=== PATIENT | female | born 1965 | race Caucasian/White ===

== ENCOUNTER → 2020-01-24 | Outpatient (CLI) | payer BC ==
[2020-01-24 16:03] LABS: Basophils % (A) 1 %; Eosinophils # (A) 0.4 k/uL (0-0.7); Eosinophils % (A) 5 %; HGB 12.8 gm/dL (11.4-16.0); Lymphocytes # (A) 2.8 k/uL (1.0-4.8); Lymphocytes % (A) 41 %; MCH 30.5 pg (25.0-35.0); MCV 95.2 fL (80.0-100.0); Mean Platelet Volume 6.8; Monocytes # (A) 0.4 k/uL (0-1.0); Monocytes % (A) 6 %; Neutrophils % (A) 45 %; Platelet Count 272 k/uL (150-450); WBC 6.8 k/uL (3.8-10.6)
[2020-01-24 16:05] LABS: Appearance,Urine Clear (Clear); Bilirubin,Urine Negative (Negative); Blood,Urine Negative (Negative); Color,Urine Yellow; Glucose,Urine (UA) Negative (Negative); Ketones,Urine Negative (Negative); Leukocyte Esterase,Urine Negative (Negative); Nitrite,Urine Negative (Negative); PH, Urine 6.5 (5.0-8.0); Protein,Urine Negative (Negative); Specific Gravity,Urine 1.014 (1.001-1.035); Urobilinogen,Urine <2.0 mg/dL (<2.0)
[2020-01-25 02:46] LABS: African American GFR (CKD) 53.1 (60.0-200.0); Albumin 4.5 g/dL (3.80-4.90); Albumin/Globulin Ratio 1.96 (1.60-3.17); Anion Gap 9.7 mmol/L (4.00-12.00); BUN/Creat Ratio 10.77 Ratio (12.00-20.00); Calcium 9.8 mg/dL (8.7-10.3); Carbon Dioxide 27.3 mmol/L (21.6-31.8); Globulin 2.3 g/dL (1.6-3.3); Non-African American GFR(CKD) 45.8 (60.0-200.0); Phosphorus 3.6 mg/dL (2.4-5.1); Potassium 4.2 mmol/L (3.5-5.5); Total Bilirubin 0.3 mg/dL (0.2-1.2); Total Protein 6.8 g/dL (6.2-8.2)
== END | disposition home or self-care (01) ==
LOC: LABWHC1 15:30
PROVIDERS: ATTEND Psychiatry & Neurology Neurology
DX: Z00.00 Encounter for general adult medical examination without abnormal findings (principal); G40.909 Epilepsy, unspecified, not intractable, without status epilepticus; N18.9 Chronic kidney disease, unspecified; Z79.899 Other long term (current) drug therapy
CPT/HCPCS: 36415; 80053; 80175; 81003; 84100; 85025

== ENCOUNTER → 2020-01-25 | Outpatient (CLI) | payer BC ==
--- NOTE | 2020-01-25 12:40 | US ---
EXAMINATION TYPE: US kidneys/renal and bladder DATE OF EXAM: 01/25/2020 COMPARISON: NONE CLINICAL HISTORY: 55-year-old female N18.9 CKD. TECHNIQUE: Multiple sonographic images of the kidneys and bladder are obtained. FINDINGS: EXAM MEASUREMENTS: Right Kidney: 11.0 x 4.8 x 4.2 cm Left Kidney: 12.3 x 5.2 x 4.2 cm Post Void Residual Volume: 19.5 mL No hydronephrosis on either side. Bladder: wnl Bilateral Jets seen: Yes Normal Post Void Residual: Yes IMPRESSION: 1. No hydronephrosis. 2. Postvoid bladder volume of 20 mL falls within acceptable limits.
== END | disposition home or self-care (01) ==
LOC: RADUSWWP 10:42
PROVIDERS: ATTEND Psychiatry & Neurology Neurology
DX: N18.9 Chronic kidney disease, unspecified (principal)
CPT/HCPCS: 76770

== ENCOUNTER → 2020-08-15 | Outpatient (CLI) | payer BC ==
[2020-08-15 17:36] LABS: African American GFR (CKD) 48.6 (60.0-200.0); Albumin 4.7 g/dL (3.80-4.90); Albumin/Globulin Ratio 2.35 (1.60-3.17); Anion Gap 10.9 mmol/L (4.00-12.00); BUN/Creat Ratio 9.29 Ratio (12.00-20.00); Carbon Dioxide 27.1 mmol/L (21.6-31.8); Chol/HDL Ratio 4.15; LDL Cholesterol,Calculated 171.4 mg/dL (0.0-131.0); Magnesium 2.3 mg/dL (1.5-2.4); Non-African American GFR(CKD) 41.9 (60.0-200.0); Potassium 4.9 mmol/L (3.5-5.5); Total Bilirubin 0.8 mg/dL (0.2-1.2); Total Protein 6.7 g/dL (6.2-8.2); VLDL Calculation 33.6 mg/dL (5.00-40.00)
[2020-08-15 18:44] LABS: Hemoglobin A1C 5.9 % (4.0-6.0)
== END | disposition home or self-care (01) ==
LOC: LABWHC1 09:48
PROVIDERS: ATTEND Nurse Practitioner Adult Health
DX: Z00.00 Encounter for general adult medical examination without abnormal findings (principal); N18.30 Chronic kidney disease, stage 3 unspecified; F10.99 Alcohol use, unspecified with unspecified alcohol-induced disorder; R42 Dizziness and giddiness
CPT/HCPCS: 36415; 80053; 80061; 83036; 83735; 84443; 84481

== ENCOUNTER 2020-10-15 12:55 | Inpatient (IN) | payer BC ==
[2020-10-15] MEDS ORDERED: SODIUM CHLORIDE 0.9% 1,000 ML IV STA (13:14)
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
[2020-10-15 13:23] LABS: Glucose,Whole Blood 99 mg/dL (75-99)
[2020-10-15 13:33] LABS: Basophils # (A) 0.1 k/uL (0-0.2); Basophils % (A) 1 %; Eosinophils # (A) 0.3 k/uL (0-0.7); Eosinophils % (A) 4 %; HCT 41.4 % (34.0-46.0); HGB 13.8 gm/dL (11.4-16.0); Lymphocytes # (A) 2.2 k/uL (1.0-4.8); Lymphocytes % (A) 29 %; MCH 30.8 pg (25.0-35.0); MCHC 33.3 g/dL (31.0-37.0); MCV 92.3 fL (80.0-100.0); Mean Platelet Volume 6.6; Monocytes # (A) 0.5 k/uL (0-1.0); Monocytes % (A) 7 %; Neutrophils # (A) 4.5 k/uL (1.3-7.7); Neutrophils % (A) 58 %; Platelet Count 314 k/uL (150-450); RBC 4.49 m/uL (3.80-5.40); RDW 13.7 % (11.5-15.5); WBC 7.7 k/uL (3.8-10.6)
[2020-10-15 13:45] LABS: INR 0.9 (<1.2); Partial Thromboplastin Time 24.5 sec (22.0-30.0); Prothrombin Time 9.8 sec (9.0-12.0)
[2020-10-15 13:50] LABS: Albumin 4.9 g/dL (3.5-5.0); Calcium 9.8 mg/dL (8.4-10.2); Total Bilirubin 0.6 mg/dL (0.2-1.3); Total Protein 7.7 g/dL (6.3-8.2)
--- NOTE | 2020-10-15 13:55 | CT ---
EXAMINATION TYPE: CT brain wo con for TPA DATE OF EXAM: 10/15/2020 COMPARISON: None HISTORY: Slurred speech CT DLP: 1055.8 mGycm Automated exposure control for dose reduction was used. Helical imaging through the brain FINDINGS: There is cortical atrophy. Cerebral vascular calcifications are present. No hemorrhage or hydrocephal us. Calvarium is intact. Paranasal sinuses and mastoid air cells as visualized are normal. Periventri cular white matter shows patchy low attenuation. IMPRESSION: AGE-RELATED ATROPHY AND CHRONIC SMALL VESSEL ISCHEMIA. CONSIDER BRAIN MRI.
--- NOTE | 2020-10-15 13:56 | XR ---
EXAMINATION TYPE: XR chest 2V DATE OF EXAM: 10/15/2020 COMPARISON: NONE HISTORY: Altered mental status TECHNIQUE: Frontal and lateral views of the chest are obtained. FINDINGS: There is no focal air space opacity, pleural effusion, or pneumothorax seen. The cardiac silhouette size is within normal limits. There is elevation of right hemidiaphragm. There are overly ing leads. The osseous structures are intact. IMPRESSION: No acute cardiopulmonary process.
[2020-10-15 13:58] LABS: Potassium 4.6 mmol/L (3.5-5.1)
[2020-10-15] MEDS ORDERED: ASPIRIN 325 MG TAB PO STA (15:17)
--- NOTE | 2020-10-15 15:19 | CT ---
EXAMINATION TYPE: CT angio head neck DATE OF EXAM: 10/15/2020 HISTORY: Slurred speech COMPARISON: CT brain 10/15/2020 CT DLP: 575.6 mGycm. Automated Exposure Control for Dose Reduction was Utilized. TECHNIQUE: CTA scan of the neck is performed with IV Contrast, patient injected with 65 mL of Isovue 370, axial images are obtained, coronal and sagittal reformatted images are reviewed. Three-D recons tructed images are created on an independent workstation and reviewed. FINDINGS: Carotid/Vascular Structures: No hemodynamically significant stenosis, occlusion, or aneurysm of the b ilateral common carotid or internal carotid arteries. The bilateral vertebral arteries are patent wit h no hemodynamically significant stenosis, occlusion, or aneurysm. The vertebrobasilar system is left dominant. [place]: Congenitally absent versus diminutive posterior commuting arteries. No evidence of large vessel occlusion or aneurysm. IMPRESSION: No hemodynamically significant stenosis or large vessel occlusion.
[2020-10-15] MEDS ORDERED: ACETAMINOPHEN TAB 500 MG TAB PO STA (16:57)
[2020-10-15] MEDS: SODIUM CHLORIDE 0.9% 1,000 ML IV SCH (17:21)
[2020-10-15] MEDS ORDERED: ALBUTEROL NEBULIZED 2.5 MG/3 ML INHALATION PRN (21:33)
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
[2020-10-15] MEDS: lamoTRIgine 100 MG TAB PO SCH (23:36)
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
[2020-10-16 04:59] LABS: Basophils # (A) 0.1 k/uL (0-0.2); Basophils % (A) 1 %; Eosinophils # (A) 0.3 k/uL (0-0.7); Eosinophils % (A) 5 %; HCT 39.5 % (34.0-46.0); HGB 13.5 gm/dL (11.4-16.0); Lymphocytes # (A) 2.6 k/uL (1.0-4.8); Lymphocytes % (A) 44 %; MCH 31.5 pg (25.0-35.0); MCHC 34.2 g/dL (31.0-37.0); MCV 92.3 fL (80.0-100.0); Mean Platelet Volume 6.5; Monocytes # (A) 0.3 k/uL (0-1.0); Monocytes % (A) 6 %; Neutrophils # (A) 2.5 k/uL (1.3-7.7); Neutrophils % (A) 43 %; Platelet Count 253 k/uL (150-450); RBC 4.28 m/uL (3.80-5.40); RDW 13.8 % (11.5-15.5); WBC 5.9 k/uL (3.8-10.6)
[2020-10-16 05:14] LABS: Calcium 9.7 mg/dL (8.4-10.2); Potassium 4.2 mmol/L (3.5-5.1)
[2020-10-16] MEDS: SODIUM CHLORIDE 0.9% 1,000 ML IV SCH (08:19)
[2020-10-16] MEDS: ATORVASTATIN 40 MG TAB PO SCH (08:19)
[2020-10-16] MEDS: lamoTRIgine 100 MG TAB PO SCH ×2 (08:20→20:36)
[2020-10-16] MEDS: PARoxetine 10 MG TAB PO SCH (08:20)
[2020-10-16] MEDS: SYMBICORT 160-4.5 MCG INHALER INHALATION SCH ×2 (08:29→20:22)
[2020-10-16] MEDS ORDERED: PANTOPRAZOLE 40 MG TABLET PO SCH (08:30)
--- NOTE | 2020-10-16 08:49 | US ---
EXAMINATION TYPE: US carotid duplex BILAT DATE OF EXAM: 10/16/2020 COMPARISON: CLINICAL HISTORY: stroke . Patient states she was unable to talk, possible tia. HTN. EXAM MEASUREMENTS: RIGHT: Peak Systolic Velocity (PSV) cm/sec ----- Right CCA: 56.9 ----- Right ICA: 109.7 ----- Right ECA: 85.4 ICA/CCA ratio: 1.9 RIGHT: End Diastole cm/sec ----- Right CCA: 11.3 ----- Right ICA: 25.7 ----- Right ECA: 17.6 LEFT: Peak Systolic Velocity (PSV) cm/sec ----- Left CCA: 87.8 ----- Left ICA: 104.7 ----- Left ECA: 101.6 ICA/CCA ratio: 1.2 LEFT: End Diastole cm/sec ----- Left CCA: 27.4 ----- Left ICA: 27.0 ----- Left ECA: 20.8 VERTEBRALS (direction of flow): Right Vertebral: Antegrade Left Vertebral: Antegrade Rhythm: Normal No wall thickening, significant stenosis, elevated velocities or plaque visualized. Grayscale, color Doppler, spectral Doppler imaging performed of the carotid arteries. Waveform analysis shows no steno sis. IMPRESSION: No evident hemodynamic stenosis of the proximal internal carotid arteries by Doppler cri teria, an indirect measurement of carotid stenosis Criteria for Assigning % of Stenosis / Diameter reduction (Estimation based on the indirect measurements of the internal carotid artery velocities (ICA PSV). 1. Normal (no stenosis)=ICA PSV < 125 cm/s: ratio < 2.0: ICA EDV<40 cm/s. 2. Less than 50% stenosis=ICA PSV < 125 cm/s: ratio < 2.0: ICA EDV<40 cm/s. 3. 50 to 69% stenosis=ICA PSV of 125 to 230 cm/s: ration 2.0 ? 4.0: ICA EDV 40-100 cm/s. 4. Greater than 70% stenosis to near occlusion= ICA PSV > 230 cm/s: ratio > 4.0: ICA EDV > 100 cm/s. 5. Near occlusion= ICA PSV velocities may be low or undetectable: variable ratio and ICA EDV. 6. Total occlusion=unable to detect flow.
[2020-10-16] MEDS: PANTOPRAZOLE 40 MG TABLET PO SCH (08:58)
[2020-10-16] MEDS ORDERED: LORazepam 2 MG/ML INJ IV PRN (09:17)
--- NOTE | 2020-10-16 09:21 | P.PN ---
Subjective This is a pleasant 55 years old female with past medical history of hypertension, asthma. Presents because of inability to talk for 20 minutes and slurred speech N emergency room patient found to have NIH of 1, she was found but a candidate for TPA per Dr. Erazo. Patient states after 10:00 patient could not speak and gradually she was getting better, first just at [employer] work, then to worsening her speech becomes slurs before came back to normal within half an hour. Currently she is speaking normally. She denies headache. No weakness or numbness or double vision. She is with history of seizure on Lamictal and she follows up with Dr. Merrill, patient states usually when she does seizure she got stuttering in her voice. 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 Johnson who check and her echo and monitoring her blood pressure. She is hemodynamically stable, blood pressure on the high side 163/81 unremarkable cbc, inr, bmp and liver enzymes except for slightly elevated creatinine of 1.1, baseline is 1.3-1.[address] of the brain: No acute process, age-related atrophy CTA of the brain is : No hemodynamically significant stenosis or large vessel occlusion Chest x-ray: No acute process In the emergency room patient received 1000 mL of normal saline 10/16/2020 Patient is awake and alert today. No more slurred speech. No other neurological complaints. No weakness or numbness or blurred vision. No headache. Labs are stable and unremarkable. TSH is normal at 2.1, creatinine is stable at 1.2 with GFR of 50 Vitals are stable. Neurologist recommended MRI of the brain, Lamictal level and hypercoagulable workup Currently she is continued on aspirin 325 mg Patient is eating and drinking so discontinue IV fluids Objective - Vital Signs Vital signs: Vital Signs Temp 98.1 F 10/16/20 08:00 Pulse 60 10/16/20 08:00 Resp 18 10/16/20 08:00 BP 119/71 10/16/20 08:00 Pulse Ox 94 L 10/16/20 08:00 Intake & Output 10/15/20 10/16/20 10/16/20 18:59 06:59 18:59 Weight 111.584 kg - Exam GENERAL: The patient is alert and oriented x3, not in any acute distress. Well developed, well nourished. HEENT: Pupils are round and equally reacting to light. EOMI. No scleral icterus. No conjunctival pallor. Normocephalic, atraumatic. No pharyngeal erythema. No thyromegaly. CARDIOVASCULAR: S1 and S2 present. No murmurs, rubs, or gallops. PULMONARY: Chest is clear to auscultation, no wheezing or crackles. ABDOMEN: Soft, nontender, nondistended, normoactive bowel sounds. No palpable organomegaly. MUSCULOSKELETAL: No joint swelling or deformity. EXTREMITIES: No cyanosis, clubbing, or pedal edema. NEUROLOGICAL: Gross neurological examination did not reveal any focal deficits. SKIN: No rashes. no petechiae. - Labs CBC & Chem 7: 10/16/20 04:15 10/16/20 04:19 Labs: Abnormal Lab Results - Last 24 Hours (Table) 10/15/20 10/16/20 Range/Units 13:18 04:19 Creatinine 1.17 H 1.21 H (0.52-1.04) mg/dL Glucose 104 H (74-99) mg/dL AST 39 H (14-36) U/L Assessment and Plan Assessment: Slurred speech and expressive aphasia, acute stroke versus TIA. Rule out seizure Permissive hypertension Chronic kidney disease stage 2-3 Plan: this is a pleasant 55 years old female has because of acute stroke. Versus TIA, versus seizure. Continue with aspirin, neuro check. Neurologic consult Genitorectal level and MRI of the brain Labs and medication were reviewed.. Continue same treatment. Continue with symptomatic treatment. Resume home medication. Monitor lytes and vitals. DVT and GI prophylaxis. Further recommendations depends on the clinical course of the patient DVT prophylaxis: Subcutaneous heparin GI Prophylaxis: Pepcid PT/OT: Pending Prognosis is guarded
[2020-10-16 10:53] LABS: Chol/HDL Ratio 3.27; LDL Cholesterol,Calculated 126.8 mg/dL (0.0-131.0); VLDL Calculation 18.2 mg/dL (5.00-40.00)
[2020-10-16 11:02] LABS: Folate, Serum 2.9 ng/mL
[2020-10-16 12:38] LABS: Beta 2 Microglobulin 2.85 mg/L (0.61-2.37)
[2020-10-16 15:33] LABS: Cardiolipin Ab IgG Interp NEGATIVE (NEGATIVE); Cardiolipin Ab IgM Interp NEGATIVE (NEGATIVE); Cardiolipin IgA Antibody <2.0 U/mL; Cardiolipin IgM Antibody 3.5 U/mL
[2020-10-16] MEDS ORDERED: CYANOCOBALAMIN 1,000 MCG/ML 1 ML VIAL IM ONE (17:00)
[2020-10-16] MEDS: FOLIC ACID 1 MG TAB PO SCH (18:18)
[2020-10-16] MEDS: MONTELUKAST 10 MG TAB PO SCH (20:36)
[2020-10-17] MEDS ORDERED: LORazepam 2 MG/ML INJ IV PRN (00:13)
[2020-10-17] MEDS: PANTOPRAZOLE 40 MG TABLET PO SCH (06:16)
[2020-10-17] MEDS ORDERED: ASPIRIN 325 MG TAB PO SCH (09:00)
[2020-10-17 09:01] LABS: Lamotrigine (Lamictal) 15.6 ug/mL (2.0-15.0)
[2020-10-17] MEDS: SYMBICORT 160-4.5 MCG INHALER INHALATION SCH ×2 (09:16→19:33)
[2020-10-17 09:18] LABS: Glucose,Whole Blood 110 mg/dL (75-99)
--- NOTE | 2020-10-17 09:19 | P.PN ---
Subjective Progress Note Date: 10/16/20 Patient was seen in the ER. Patient laying comfortably in the bed. Her was also present. Offers no complaints. No further neurological symptoms. Objective - Vital Signs Vital signs: Vital Signs Temp 98.1 F 10/16/20 20:23 Pulse 58 L 10/16/20 20:46 Resp 18 10/16/20 20:46 BP 128/76 10/16/20 20:23 Pulse Ox 96 10/16/20 20:23 Intake & Output 10/16/20 10/16/20 10/17/20 06:59 18:59 06:59 Weight 111.584 kg Other: Voiding Method Toilet # Voids 1 - Exam Patient is a middle aged female in no distress. Patient is alert awake oriented to time place and person. Speech and language functions are normal. Attention, concentration and fund of knowledge is adequate. On cranial examination, pupils are round and reacting to light, visual thompson are full on confrontation, extraocular muscles are intact with no nystagmus. Face is symmetric, tongue protrudes to the midline. Palatal elevation and sensation normal, hearing and shoulder shrug normal, facial sensation normal. Shoulder shrug normal. On muscle strength testing, there is no pronator drift and the strength is normal in arms and legs distally and proximally. Deep tendon reflexes are symmetric. Sensory to touch is equal with no neglect. Cerebellar function showed no ataxia for sxpwrg-dg-[id number] testing. No dysdiadochokinesia. Tone and bulk of muscles normal. Gait normal. On general examination, there is no carotid bruit or murmur, S1-S2 audible. Abdomen is soft nontender. Chest is clear. Peripheral pulses are present. No edema. - Labs CBC & Chem 7: 10/16/20 04:15 10/16/20 04:19 Labs: Abnormal Lab Results - Last 24 Hours (Table) 10/16/20 10/16/20 Range/Units 04:15 04:19 Creatinine 1.21 H (0.52-1.04) mg/dL Aoed-9-[id number] 2.85 H (0.61-2.37) mg/L Cholesterol 209 H (0-200) mg/dL HDL Cholesterol 64.0 H (40.0-60.0) mg/dL Homocysteine 22.36 H (4.00-14.00) umol/L Assessment and Plan Assessment: * Transient cerebral ischemia manifesting with expressive aphasia, and slurring, which resolved in about half an hour. * Hypertension * Hyperlipidemia * Obesity * Family history of strokes TIA. * Reported history of possible seizure disorder. Plan: * Await MRI of the brain to evaluate for an acute stroke. * Await 2-D echo with bubble study to rule out PFO. * CTA of head and neck showed no stenosis or occlusion or aneurysm. * Lipid panel revealed cholesterol 209, LDL 126, HDL 64 and triglycerides 91. Patient started on Lipitor 40 mg daily. * Hemoglobin A1c 5.9 on 08/15/2020. No need to repeat A1c. * Continue telemetry monitoring. * Patient has been started on aspirin 325 mg daily, which should be continued. * Patient has positive family history of CVA in her family members. Hyperc oagulable workup so far revealed negative cardiolipin antibodies, homocysteine is elevated 22.36, B12 315 which is borderline, folic acid 2.9, will need replacement. Beta 2 microglobulin is mildly elevated at 2.85/2.37. Await further hypercoagulable workup. * Lamictal level.
--- NOTE | 2020-10-17 09:39 | CT ---
EXAMINATION TYPE: CODE STROKE: CT brain wo contr DATE OF EXAM: 10/17/2020 COMPARISON: CT 10/15/2020 HISTORY: code stroke, slurred speech CT DLP: 1072.4 mGycm Automated exposure control for dose reduction was used. Helical imaging through the brain. FINDINGS: There is no acute intracranial hemorrhage, mass effect, or midline shift identified. There is periven tricular white matter patchy low attenuation similar to prior exam. The ventricles and sulci are with in normal limits in size. The globes are intact and the visualized sinuses are clear. IMPRESSION: No acute intracranial hemorrhage, mass effect, or midline shift is seen. Consider MRI.
[2020-10-17] MEDS: ATORVASTATIN 40 MG TAB PO SCH (10:21)
[2020-10-17] MEDS: PARoxetine 10 MG TAB PO SCH (10:21)
[2020-10-17] MEDS: lamoTRIgine 100 MG TAB PO SCH ×2 (10:21→20:19)
[2020-10-17] MEDS: FOLIC ACID 1 MG TAB PO SCH (10:21)
--- NOTE | 2020-10-17 10:54 | MR ---
EXAMINATION TYPE: MR brain wo con DATE OF EXAM: 10/17/2020 COMPARISON: NONE HISTORY: TIA vs CVA, left facial weakness TECHNIQUE: T1-weighted sagittal, T2, FLAIR, and diffusion axial, and T2 coronal coronal views of the brain are submitted. FINDINGS: There is no evidence of acute ischemia. The ventricles, basal cisterns, and sulci overlying the conv exities are consistent with the patient's age. There is no mass effect. Craniocervical junction maintained. Sella turcica has a normal appearance. Changes of chronic sinusitis noted. Orbits are symmetric. There are a few scattered areas of abnormal signal within the white matter which are nonspecific. No cerebellopontine angle mass. IMPRESSION: 1. Mild degenerative change and scattered nonspecific white matter changes most typical of remote isc hemia. 2. No evidence of acute ischemia.
[2020-10-17 10:58] LABS: Basophils % (A) 1 %; Eosinophils % (A) 4 %; HCT 40.3 % (34.0-46.0); HGB 13.4 gm/dL (11.4-16.0); Lymphocytes # (A) 1.7 k/uL (1.0-4.8); Lymphocytes % (A) 28 %; MCH 30.7 pg (25.0-35.0); MCHC 33.2 g/dL (31.0-37.0); MCV 92.6 fL (80.0-100.0); Mean Platelet Volume 6.8; Monocytes % (A) 6 %; Neutrophils # (A) 3.7 k/uL (1.3-7.7); Neutrophils % (A) 60 %; Platelet Count 291 k/uL (150-450); RBC 4.35 m/uL (3.80-5.40); RDW 13.6 % (11.5-15.5); WBC 6.1 k/uL (3.8-10.6)
[2020-10-17 10:59] LABS: Eosinophils # (A) 0.3 k/uL (0-0.7); Monocytes # (A) 0.4 k/uL (0-1.0)
[2020-10-17 11:08] LABS: INR 0.9 (<1.2); Partial Thromboplastin Time 23.1 sec (22.0-30.0); Prothrombin Time 10.2 sec (9.0-12.0)
[2020-10-17 11:10] LABS: Albumin 4.5 g/dL (3.5-5.0); Calcium 10.1 mg/dL (8.4-10.2); Potassium 4.4 mmol/L (3.5-5.1); Total Bilirubin 0.6 mg/dL (0.2-1.3); Total Protein 7.1 g/dL (6.3-8.2)
[2020-10-17] MEDS: CLOPIDOGREL 75 MG TAB PO SCH (12:41)
[2020-10-17 13:14] LABS: APTT 40 Sec(s) (<43); Dilute Russell Viper Venom 36 Sec(s) (<44)
--- NOTE | 2020-10-17 14:05 | P.PN ---
Progress Note - Text Progress Note Date: 10/17/20 Presenting complaint: Difficulty with speech Hospital course This is a pleasant 55 years old female with past medical history of hypertension, asthma. Presents because of inability to talk for 20 minutes and slurred speech N emergency room patient found to have NIH of 1, she was found but a candidate for TPA per Dr. Erazo. Patient states after 10:00 patient could not speak and gradually she was getting better, first just at [employer] work, then to worsening her speech becomes slurs before came back to normal within half an hour. Currently she is speaking normally. She denies headache. No weakness or numbness or double vision. She is with history of seizure on Lamictal and she follows up with Dr. Merrill, patient states usually when she does seizure she got stuttering in her voice Initial computed tomography scan of the brain, CT angiography, EKG were all unremarkable. Carotid Doppler did not show any significant stenosis. Today: Earlier today patient had an episode of losing her speech unable to find words while talking to her . On the phone. Code stroke was called. Repeat computed tomography scan was negative. She will had some weakness in the left leg and felt some tingling on the left side of the face. Symptoms are much better though she still having some trouble finding words not too much lesser degree. Review of systems: Was done for constitutional, cardiovascular, GI, pulmonary. relevant finding as above Active Medications Albuterol Sulfate (Albuterol Nebulized 2.5 Mg/3 Ml) 2.5 mg INHALATION RT-QID PRN PRN Reason: Shortness Of Breath Aspirin (Aspirin 81 Mg) 81 mg PO DAILY [facility] Atorvastatin Calcium (Atorvastatin 40 Mg Tab) 40 mg PO DAILY [facility] Last Admin: 10/17/20 10:21 Dose: 40 mg Documented by: Budesonide/Formoterol Fumarate (Symbicort 160-4.5 Mcg Inhaler) 2 puff INHALATION RT-BID [facility] Last Admin: 10/17/20 09:16 Dose: Not Given Documented by: Clopidogrel Bisulfate (Clopidogrel 75 Mg Tab) 75 mg PO DAILY [facility] Last Admin: 10/17/20 12:41 Dose: 75 mg Documented by: Folic Acid (Folic Acid 1 Mg Tab) 1 mg PO DAILY [facility] Last Admin: 10/17/20 10:21 Dose: 1 mg Documented by: Lamotrigine (Lamotrigine 100 Mg Tab) 300 mg PO BID [facility] Last Admin: 10/17/20 10:21 Dose: 300 mg Documented by: Lorazepam (Lorazepam 2 Mg/Ml Inj) 1 mg IV ONCE PRN PRN Reason: Anxiety Stop: 10/17/20 23:00 Montelukast Sodium (Montelukast 10 Mg Tab) 10 mg PO HS [facility] Last Admin: 10/16/20 20:36 Dose: 10 mg Documented by: Pantoprazole Sodium (Pantoprazole 40 Mg Tablet) 40 mg PO AC-BRKFST [facility] Last Admin: 10/17/20 06:16 Dose: 40 mg Documented by: Paroxetine HCl (Paroxetine 10 Mg Tab) 10 mg PO DAILY [facility] Last Admin: 10/17/20 10:21 Dose: 10 mg Documented by: On examination: VITAL SIGNS: [98.1, 67, 18, 168.89, 97% on room air] GENERAL APPEARANCE: BMI 40, sitting on bed, comfortable HEENT: Normal external appearance of nose and ear. Oral cavity normal EYES: Pupils equal. Conjunctiva normal. NECK: JVD not raised. Mass not palpable. RESPIRATORY: Respiratory effort normal. Lungs clear to auscultation. CARDIOVASCULAR: First and second sounds normal. No edema. ABDOMEN: Soft. Liver and spleen not palpable. No tenderness. No mass palpable. NEUROLOGICAL: Cranial nerves grossly intact. Power sensation grossly intact. Patient is finding some subtle difficulty in finding words at times. PSYCHIATRY: Alert and oriented x3. Mood and affect normal. INVESTIGATIONS, reviewed in the clinical context: Brain MRI [October 17]:Nothing acute, chronic changes CT brain: [October 17: Nothing acute WBC 6.1 hemoglobin 13.4 potassium 4.4 creatinine 1.26 for LDL 126 TSH 2.1 Coronavirus [PCR]-not detected Anticardiolipin antibodies: Negative Computed tomography scan of the brain, CT angiography, carotid Doppler: Unremarkable EKG tracing: Normal sinus rhythm Assessment and plan: -Recurrent TIA-repeat episode this morning. Patient's had 2 negative computed tomography scan, negative carotid Doppler, negative MRI. This could be small vessel disease. On aspirin, Plavix, increase Lipitor to 80 mg daily at bedtime. -Morbid obesity BMI 40 Weight loss measures, follow with PCP -Essential hypertension Cozaar -Hyperlipidemia On Lipitor -Anxiety depression not otherwise specified On Paxil Patient will be getting EEG this morning. Follow-up with neurology. Care was discussed with the patient has been off the bedside. Increase Lipitor.
--- NOTE | 2020-10-17 17:01 | P.PN ---
Subjective Progress Note Date: 10/17/20 Patient was seen urgently today, as patient had a stroke activated today and 9:16 AM. Patient was apparently talking to her on the phone, when suddenly she could not articulate, could not speak. She was having some right- sided visual field issues. NIH stroke scale was 3, mainly related to partial right visual field deficit, some aphasia and dysarthria. Patient's blood pressure was 168/89, with pulse rate of 67. Patient underwent stat computed tomography scan of the head, which came back normal. Patient was sent for MRI of the brain, directly from the CT department,. Her MRI of the brain revealed no evidence of acute ischemia. Mild degenerative changes and scattered nonspecific white matter changes, most typical of remote ischemia. Patient's neurological symptoms resolved by 10 AM. Patient now complaining of some burning sensation in the frontal region. Patient denies any history of headaches or migraines. Objective - Vital Signs Vital signs: Vital Signs Temp 98.5 F 10/17/20 08:06 Pulse 60 10/17/20 08:06 Resp 20 10/17/20 08:06 BP 131/77 10/17/20 08:06 Pulse Ox 93 L 10/17/20 08:06 Intake & Output 10/16/20 10/17/20 10/17/20 18:59 06:59 18:59 Intake Total 10 240 Balance 10 240 Weight 109.1 kg Intake: IV 10 0.9 10 Oral 240 Other: Voiding Method Toilet # Voids 1 1 - Exam Patient is a middle aged female in no distress. Patient is alert awake oriented to time place and person. Speech and language functions are normal. Attention, concentration and fund of knowledge is adequate. On cranial examination, pupils are round and reacting to light, visual thompson are full on confrontation, extraocular muscles are intact with no nystagmus. Face is symmetric, tongue protrudes to the midline. Palatal elevation and sensation normal, hearing and shoulder shrug normal, facial sensation normal. Shoulder shrug normal. On muscle strength testing, there is no pronator drift and the strength is normal in arms and legs distally and proximally. Deep tendon reflexes are symmetric. Sensory to touch is equal with no neglect. Cerebellar function showed no ataxia for ylljba-uw-nlhr testing. No dysdiadochokinesia. Tone and bulk of muscles normal. Gait normal. On general examination, there is no carotid bruit or murmur, S1-S2 audible. Abdomen is soft nontender. Chest is clear. Peripheral pulses are present. No edema. - Labs CBC & Chem 7: 10/17/20 10:12 10/17/20 10:12 Labs: Abnormal Lab Results - Last 24 Hours (Table) 10/16/20 10/16/20 10/16/20 Range/Units 04:15 04:15 04:19 POC Glucose (mg/dL) (75-99) mg/dL Ecve-7-Pmhcxadzpqnsv 2.85 H (0.61-2.37) mg/L Cholesterol 209 H (0-200) mg/dL HDL Cholesterol 64.0 H (40.0-60.0) mg/dL Homocysteine 22.36 H (4.00-14.00) umol/L Lamotrigine 15.6 H (2.0-15.0) ug/mL 10/17/20 Range/Units 09:15 POC Glucose (mg/dL) 110 H (75-99) mg/dL Eqaw-8-Jjamfczseqaob (0.61-2.37) mg/L Cholesterol (0-200) mg/dL HDL Cholesterol (40.0-60.0) mg/dL Homocysteine (4.00-14.00) umol/L Lamotrigine (2.0-15.0) ug/mL Assessment and Plan Assessment: * Recurrent TIAs 2, manifesting with transient expressive aphasia, and slurring. Both of these events resolved in 45 minutes to an hour. * Hypertension * Hyperlipidemia * Obesity * Family history of strokes TIA. * History of seizure disorder, currently on Lamictal. Plan: * MRI of the brain revealed no acute stroke. Some small vessel ischemic change. * Await 2-D echo with bubble study to rule out PFO. Still outstanding. * CTA of head and neck showed no stenosis or occlusion or aneurysm. * Lipid panel revealed cholesterol 209, LDL 126, HDL 64 and triglycerides 91. Patient started on Lipitor 40 mg daily. * Hemoglobin A1c 5.9 on 08/15/2020. No need to repeat A1c. * Continue telemetry monitoring. * Patient will be placed on dual antiplatelet medications at this time. May n eed a EMELY for recurrent TIAs. * Patient has positive family history of CVA in her family members. Hy percoagulable workup so far revealed negative cardiolipin antibodies, homocysteine is elevated 22.36, B12 315 which is borderline, folic acid 2.9, will need replacement. * Beta 2 microglobulin is mildly elevated at 2.85/2.37. Await further hypercoa gulable workup. We will request hematology consultation to check for hypercoagulable state especially with elevated beta 2 microglobulin's. * Lamictal level is mildly elevated 15.6. Patient currently on Lamictal 300 mg twice a day. * EEG was performed, which revealed focal slowing and focal epileptiform activity over the left temporal region. This suggestive of focal cortical neuronal dysfunction with underlying cortical irritability and tendency for seizures. Patient does have history of seizure disorder, currently on Lamictal. It is uncertain if these events represent partial seizures, or TIAs.
--- NOTE | 2020-10-17 19:07 | EEG ---
ELECTROENCEPHALOGRAM REPORT DATE OF SERVICE: 10/17/2020 PREAMBLE: This is a 55-year-old female who is having recurrent TIAs with negative MRI. This study is performed to evaluate for any epileptiform activity. Patient does have history of seizure disorder as well. Currently on Lamictal 300 mg b.i.d. EEG FINDINGS: This is a 21 channel routine EEG recording in a patient utilizing 10/20 international system with referential and bipolar montages. The background consists of well developed, well regulated, moderate voltage activity in 9-10 hertz alpha. Background is posterior dominant and is reactive to eye opening and closing. There is frequent dysrhythmic delta and some theta activity seen in the left temporal region. Intermittent left mid temporal sharp waves were also seen. Photic driving response was not seen. Different stages of sleep were not seen. No electrographic seizure was recorded. EKG channel showed no arrhythmia. IMPRESSION: This is an abnormal EEG due to presence of focal slowing and focal epileptiform activity over the left temporal region. This is suggestive of focal cortical neuronal dysfunction with underlying cortical irritability and tendency for partial seizures. No electrographic seizure was recorded. MMODL / IJN: [id number] /
[2020-10-17] MEDS: ATORVASTATIN 80 MG TAB PO SCH (20:19)
[2020-10-17] MEDS: MONTELUKAST 10 MG TAB PO SCH (20:19)
[2020-10-18] MEDS: PANTOPRAZOLE 40 MG TABLET PO SCH (06:35)
[2020-10-18] MEDS: SYMBICORT 160-4.5 MCG INHALER INHALATION SCH ×2 (07:50→20:01)
[2020-10-18] MEDS: lamoTRIgine 100 MG TAB PO SCH ×2 (09:03→21:07)
[2020-10-18] MEDS: ASPIRIN 81 MG PO SCH (09:04)
[2020-10-18] MEDS: FOLIC ACID 1 MG TAB PO SCH (09:04)
[2020-10-18] MEDS: CLOPIDOGREL 75 MG TAB PO SCH (09:04)
[2020-10-18] MEDS: PARoxetine 10 MG TAB PO SCH (09:04)
[2020-10-18] MEDS ORDERED: CYANOCOBALAMIN 1,000 MCG/ML 1 ML VIAL IM ONE (13:40)
--- NOTE | 2020-10-18 15:42 | P.PN ---
Progress Note - Text Progress Note Date: 10/18/20 Presenting complaint: Difficulty with speech Hospital course This is a pleasant 55 years old female with past medical history of hypertension, asthma. Presents because of inability to talk for 20 minutes and slurred speech N emergency room patient found to have NIH of 1, she was found but a candidate for TPA per Dr. Erazo. Patient states after 10:00 patient could not speak and gradually she was getting better, first just at [employer] work, then to worsening her speech becomes slurs before came back to normal within half an hour. Currently she is speaking normally. She denies headache. No weakness or numbness or double vision. She is with history of seizure on Lamictal and she follows up with Dr. Merrill, patient states usually when she does seizure she got stuttering in her voice Initial computed tomography scan of the brain, CT angiography, EKG were all unremarkable. Carotid Doppler did not show any significant stenosis. October 17: patient had an episode of losing her speech unable to find words while talking to her . On the phone. Code stroke was called. Repeat computed tomography scan was negative. She will had some weakness in the left leg and felt some tingling on the left side of the face. Symptoms improved within about 40 minutes. Today: Patient having slight difficulty finding words but otherwise able to converse. No focal weakness. at the bedside. Review of systems: Was done for constitutional, cardiovascular, GI, pulmonary. relevant finding as above Active Medications Albuterol Sulfate (Albuterol Nebulized 2.5 Mg/3 Ml) 2.5 mg INHALATION RT-QID PRN PRN Reason: Shortness Of Breath Aspirin (Aspirin 81 Mg) 81 mg PO DAILY [facility] Last Admin: 10/18/20 09:04 Dose: 81 mg Documented by: Atorvastatin Calcium (Atorvastatin 80 Mg Tab) 80 mg PO HS [facility] Last Admin: 10/17/20 20:19 Dose: 80 mg Documented by: Budesonide/Formoterol Fumarate (Symbicort 160-4.5 Mcg Inhaler) 2 puff INHALATION RT-BID [facility] Last Admin: 10/18/20 07:50 Dose: 2 puff Documented by: Clopidogrel Bisulfate (Clopidogrel 75 Mg Tab) 75 mg PO DAILY [facility] Last Admin: 10/18/20 09:04 Dose: 75 mg Documented by: Folic Acid (Folic Acid 1 Mg Tab) 1 mg PO DAILY [facility] Last Admin: 10/18/20 09:04 Dose: 1 mg Documented by: Lamotrigine (Lamotrigine 100 Mg Tab) 300 mg PO BID [facility] Last Admin: 10/18/20 09:03 Dose: 300 mg Documented by: Montelukast Sodium (Montelukast 10 Mg Tab) 10 mg PO HS [facility] Last Admin: 10/17/20 20:19 Dose: 10 mg Documented by: Pantoprazole Sodium (Pantoprazole 40 Mg Tablet) 40 mg PO AC-BRKFST [facility] Last Admin: 10/18/20 06:35 Dose: 40 mg Documented by: Paroxetine HCl (Paroxetine 10 Mg Tab) 10 mg PO DAILY [facility] Last Admin: 10/18/20 09:04 Dose: 10 mg Documented by: On examination: VITAL SIGNS: 97.5, 72, 16, 128.78, 95% room air GENERAL APPEARANCE: Resting in bed HEENT: Normal external appearance of nose and ear. Oral cavity normal EYES: Pupils equal. Conjunctiva normal. NECK: JVD not raised. Mass not palpable. RESPIRATORY: Respiratory effort normal. Lungs clear to auscultation. CARDIOVASCULAR: First and second sounds normal. No edema. ABDOMEN: Soft. Liver and spleen not palpable. No tenderness. No mass palpable. NEUROLOGICAL: Cranial nerves grossly intact. Power sensation grossly intact. finding some subtle difficulty in finding words at times. PSYCHIATRY: Alert and oriented x3. Mood and affect normal. INVESTIGATIONS, reviewed in the clinical context: EEG: Focal slowing and focal epileptiform activity over the left temporal region. Brain MRI [October 17]:Nothing acute, chronic changes CT brain: [October 17: Nothing acute WBC 6.1 hemoglobin 13.4 potassium 4.4 creatinine 1.26 for LDL 126 TSH 2.1 Coronavirus [PCR]-not detected Anticardiolipin antibodies: Negative Computed tomography scan of the brain, CT angiography, carotid Doppler: Unremarkable EKG tracing: Normal sinus rhythm Assessment and plan: -Recurrent TIA- Patient's had 2 negative computed tomography scan, negative carotid Doppler, negative MRI. This could be small vessel disease. On aspirin, Plavix, Lipitor. -Morbid obesity BMI 40 Weight loss measures, follow with PCP -Essential hypertension Cozaar -Hyperlipidemia On Lipitor -Anxiety depression not otherwise specified On Paxil -Epileptiform activity, and the left temporal lobe Patient is on Lamictal. We'll await further input from neurology. -Moderate persistent asthma Continue with Symbicort, and platelet Continue current medications. We'll discuss with neurology. Care was discussed with the patient has been out of the bedside.
--- NOTE | 2020-10-18 16:25 | P.PN ---
Subjective Progress Note Date: 10/18/20 10/18/2020: Patient was seen for a follow-up. Patient is doing well. Offers no complaints. No further spells in the last 24 hours. All symptoms have resolved. Patient had EEG performed, which revealed focal slowing and epileptiform activity over the left temporal region. Uncertain if her spells are from TIA, or focal seizures. Patient states that she has been diagnosed with "mild seizures" by Dr. Merrill. She has not had any seizures for last 5 years. Patient states that her can only tell when she is having a seizure. Sometimes she would stop in the middle of the sentence and would not remember what she was talking. She describes her major seizure in which she gets burning sensation in the forehead and then gets like a star burst feeling. And then the sensation goes down her neck to the arm and she is forgetful. She would do stuff that she would not remember. Like an example, she once cleaned the globe of the light bulb, covered it with a towel and put in the cabinet unde r the sink, not realizing what she did. Patient was at first placed on phenobarbital, but developed side effects. Depakote produced hepatic dysfunction, Topamax produced hearing loss. She also was on zonisamide but produced breakthrough seizures. The last medication she was placed on was Lamictal, which is apparently working well for her. 10/17/2020: Patient was seen urgently today, as patient had a stroke activated today and 9:16 AM. Patient was apparently talking to her on the phone, when suddenly she could not articulate, could not speak. She was having some right-sided visual field issues. NIH stroke scale was 3, mainly related to partial right visual field deficit, some aphasia and dysarthria. Patient's blood pressure was 168/89, with pulse rate of 67. Patient underwent stat computed tomography scan of the head, which came back normal. Patient was sent for MRI of the brain, directly from the CT department,. Her MRI of the brain revealed no evidence of acute ischemia. Mild degenerative changes and scattered nonspecific white matter changes, most typical of remote ischemia. Patient's neurological symptoms resolved by 10 AM. Patient now complaining of some burning sensation in the frontal region. Patient denies any history of headaches or migraines. Objective - Vital Signs Vital signs: Vital Signs Temp 97.5 F L 06/03/21 12:54 Pulse 72 10/18/20 12:54 Resp 16 10/18/20 13:07 BP 128/78 10/18/20 12:54 Pulse Ox 95 10/18/20 12:54 Intake & Output 10/17/20 10/18/20 10/18/20 18:59 06:59 18:59 Intake Total 760 810 Balance 760 810 Weight 108.6 kg Intake: IV 20 10 Invasive Line 1 20 Invasive Line 2 10 Oral 740 800 Other: Voiding Method Toilet Toilet Toilet # Voids 2 - Exam Patient is a middle aged female in no distress. Patient is alert awake oriented to time place and person. Speech and language functions are normal. Attention, concentration and fund of knowledge is adequate. On cranial examination, pupils are round and reacting to light, visual thompson are full on confrontation, extraocular muscles are intact with no nystagmus. Face is symmetric, tongue protrudes to the midline. Palatal elevation and sensation normal, hearing and shoulder shrug normal, facial sensation normal. Shoulder shrug normal. On muscle strength testing, there is no pronator drift and the strength is normal in arms and legs distally and proximally. Deep tendon reflexes are symmetric. Sensory to touch is equal with no neglect. Cerebellar function showed no ataxia for [id number] testing. No dysdiadochokinesia. Tone and bulk of muscles normal. Gait normal. On general examination, there is no carotid bruit or murmur, S1-S2 audible. Abdomen is soft nontender. Chest is clear. Peripheral pulses are present. No edema. - Labs CBC & Chem 7: 10/17/20 10:12 10/17/20 10:12 Assessment and Plan Assessment: * Recurrent TIAs 2, manifesting with transient expressive aphasia, and slurring. Both of these events resolved in 45 minutes to an hour. MRI of the brain negative for acute stroke. * History of seizure disorder. Patient has been seizure-free for the last 5 years. Patient's current EEG was abnormal with evidence of focal slowing and sharp wave activity over the left temporal region. Uncertain if these spells were focal seizures. * Hypertension * Hyperlipidemia * Obesity * Family history of strokes TIA. Plan: * MRI of the brain revealed no acute stroke. Some small vessel ischemic change. * Await 2-D echo with bubble study to rule out PFO. Still outstanding. * CTA of head and neck showed no stenosis or occlusion or aneurysm. * Lipid panel revealed cholesterol 209, LDL 126, HDL 64 and triglycerides 91. Patient started on Lipitor 40 mg daily. * Hemoglobin A1c 5.9 on 08/15/2020. No need to repeat A1c. * Telemetry monitoring revealed sinus rhythm with sinus bradycardia. * Continue dual antiplatelet medications at this time. May need a EMELY for recurrent TIAs. * Patient has positive family history of CVA in her family members. Hyp ercoagulable workup so far revealed negative cardiolipin antibodies, homocysteine is elevated 22.36, B12 315 which is borderline, folic acid 2.9, will need replacement. * Beta 2 microglobulin is mildly elevated at 2.85/2.37. Lupus anticoagulant neg ative. Await further hypercoagulable workup. Await hematology consultation to check for hypercoagulable state especially with elevated beta 2 microglobulin's. * Lamictal level is mildly elevated 15.6. Patient currently on Lamictal 300 mg twice a day. * EEG revealed focal slowing and focal epileptiform activity over the left temporal region. This suggestive of focal cortical neuronal dysfunction with underlying cortical irritability and tendency for seizures. Patient does have history of seizure disorder, currently on Lamictal. It is uncertain if these events represent partial seizures, or TIAs. We will keep her on same dose of Lamictal for now.
[2020-10-18] MEDS ORDERED: HALOPERIDOL LACTATE 5 MG/ML 1 ML VIAL IM STA (16:59)
[2020-10-18] MEDS ORDERED: valACYclovir 500 MG TAB PO SCH (17:15)
[2020-10-18] MEDS: valACYclovir HCL 1,000 MG TABLET PO SCH ×2 (18:02→21:07)
[2020-10-18] MEDS: ATORVASTATIN 80 MG TAB PO SCH (21:07)
[2020-10-18] MEDS: MONTELUKAST 10 MG TAB PO SCH (21:07)
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
[2020-10-19] MEDS: PANTOPRAZOLE 40 MG TABLET PO SCH (06:42)
[2020-10-19] MEDS: SYMBICORT 160-4.5 MCG INHALER INHALATION SCH (07:53)
[2020-10-19] MEDS: ASPIRIN 81 MG PO SCH (08:47)
[2020-10-19] MEDS: FOLIC ACID 1 MG TAB PO SCH (08:48)
[2020-10-19] MEDS: lamoTRIgine 100 MG TAB PO SCH (08:49)
[2020-10-19] MEDS: valACYclovir HCL 1,000 MG TABLET PO SCH (08:50)
[2020-10-19] MEDS: PARoxetine 10 MG TAB PO SCH (08:50)
[2020-10-19] MEDS: CLOPIDOGREL 75 MG TAB PO SCH (08:51)
[2020-10-19 10:29] LABS: Anti-Thrombin III Activity 107 % (79-109)
[2020-10-19 11:23] LABS: Protein C (Activity) 113 % (71-138)
[2020-10-19 11:31] VITALS: BP 144/75; PULSE 63; RESP 16; TEMP 98.2
--- NOTE | 2020-10-19 14:29 | P.PN ---
Subjective Progress Note Date: 10/19/20 10/19/2020:Patient doing well, offers no complaints. No numbness tingling focal weakness or speech difficulty. Telemetry monitoring showing sinus rhythm with sinus bradycardia in the 50s. No A. fib. 10/18/2020: Patient was seen for a follow-up. Patient is doing well. Offers no complaints. No further spells in the last 24 hours. All symptoms have resolved. Patient had EEG performed, which revealed focal slowing and epileptiform activity over the left temporal region. Uncertain if her spells a re from TIA, or focal seizures. Patient states that she has been diagnosed with "mild seizures" by Dr. Merrill. She has not had any seizures for last 5 years. Patient states that her can only tell when she is having a seizure. Sometimes she would stop in the middle of the sentence and would not remember what she was talking. She describes her major seizure in which she gets burning sensation in the forehead and then gets like a star burst feeling. And then the sensation goes down her neck to the arm and she is forgetful. She would do stuff that she would not remember. Like an example, she once cleaned the globe of the light bulb, covered it with a towel and put in the cabinet under the sink, not realizing what she did. Patient was at first placed on phenobarbital, but developed side effects. Depakote produced hepatic dysfunction, Topamax produced hearing loss. She also was on zonisamide but produced breakthrough seizures. The last medication she was placed on was Lamictal, which is apparently working well for her. 10/17/2020: Patient was seen urgently today, as patient had a stroke activated today and 9:16 AM. Patient was apparently talking to her on the phone, when suddenly she could not articulate, could not speak. She was having some right-sided visual field issues. NIH stroke scale was 3, mainly related to partial right visual field deficit, some aphasia and dysarthria. Patient's blood pressure was 168/89, with pulse rate of 67. Patient underwent stat computed tomography scan of the head, which came back normal. Patient was sent for MRI of the brain, directly from the CT department,. Her MRI of the brain revealed no evidence of acute ischemia. Mild degenerative changes and scattered nonspecific white matter changes, most typical of remote ischemia. Patient's neurological symptoms resolved by 10 AM. Patient now complaining of some burning sensation in the frontal region. Patient denies any history of headaches or migraines. Objective - Vital Signs Vital signs: Vital Signs Temp 98.2 F 10/19/20 11:28 Pulse 63 10/19/20 11:28 Resp 16 10/19/20 11:28 BP 144/75 10/19/20 11:28 Pulse Ox 95 10/19/20 11:28 Intake & Output 10/18/20 10/19/20 10/19/20 18:59 06:59 18:59 Intake Total 1010 240 Balance 1010 240 Weight 108 kg Intake: IV 10 Invasive Line 2 10 Oral 1000 240 Other: Voiding Method Toilet Toilet # Voids 2 - Exam Patient is a middle aged female in no distress. Patient is alert awake oriented to time place and person. Speech and language functions are normal. Attention, concentration and fund of knowledge is adequate. On cranial examination, pupils are round and reacting to light, visual thompson are full on confrontation, extraocular muscles are intact with no nystagmus. Face is symmetric, tongue protrudes to the midline. Palatal elevation and sensation normal, hearing and shoulder shrug normal, facial sensation normal. Shoulder shrug normal. On muscle strength testing, there is no pronator drift and the strength is normal in arms and legs distally and proximally. Deep tendon reflexes are symmetric. Sensory to touch is equal with no neglect. Cerebellar function showed no ataxia for [id number] testing. No dysdiadochokinesia. Tone and bulk of muscles normal. Gait normal. On general examination, there is no carotid bruit or murmur, S1-S2 audible. Abdomen is soft nontender. Chest is clear. Peripheral pulses are present. No edema. - Labs CBC & Chem 7: 10/17/20 10:12 10/17/20 10:12 Labs: Abnormal Lab Results - Last 24 Hours (Table) 10/16/20 Range/Units 04:15 Protein S Activity >125 H (54-117) % Assessment and Plan Assessment: * Recurrent TIAs 2, manifesting with transient expressive aphasia, and slurring. Both of these events resolved in 45 minutes to an hour. MRI of the brain negative for acute stroke. * History of seizure disorder. Patient has been seizure-free for the last 5 years. Patient's current EEG was abnormal with evidence of focal slowing and sharp wave activity over the left temporal region. Uncertain if these spells were focal seizures. * Hypertension * Hyperlipidemia * Obesity * Family history of strokes TIA. Plan: * MRI of the brain revealed no acute stroke. Some small vessel ischemic change. * 2-D echo with bubble study revealed normal left ventricular size. Mild concentric LVH. EF is 55-60%. Right ventricle is moderately enlarged. No PFO seen with bubble study. * CTA of head and neck showed no stenosis or occlusion or aneurysm. * Lipid panel revealed cholesterol 209, LDL 126, HDL 64 and triglycerides 91. Patient started on Lipitor 40 mg daily. * Hemoglobin A1c 5.9 on 08/15/2020. No need to repeat A1c. * Telemetry monitoring revealed sinus rhythm with sinus bradycardia. * Continue dual antiplatelet medications at this time. May need a EMELY for recurrent TIAs. * Patient has positive family history of CVA in her family members. Hypercoagulable workup so far revealed negative cardiolipin antibodies, negative lupus anticoagulant. Protein C activity 113, protein S activity > 125, anti-thrombin III activity 107, all normal. Homocysteine is elevated 22.36, B12 315 which is borderline, folic acid 2.9, will need replacement. Beta 2 microglobulin is mildly elevated at 2.85/2.37. Patient to follow up with hematology as outpatient. Await further hypercoagulable workup including genetic testing. * Lamictal level is mildly elevated 15.6. Patient currently on Lamictal 300 mg twice a day. * EEG revealed focal slowing and focal epileptiform activity over the left temporal region. This suggestive of focal cortical neuronal dysfunction with underlying cortical irritability and tendency for seizures. Patient does have history of seizure disorder, currently on Lamictal. It is uncertain if these events represent partial seizures, or TIAs. We will keep her on same dose of Lamictal for now. Patient will follow up with her neurologist Dr. Merrill for further management of TIA versus focal seizure. * Neurologically clear for discharge. 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 This result is not associated with significantly increased risk for CAD, or venous thromboembolism. Beta-2 glycoprotein negative.
--- NOTE | 2020-10-19 18:17 | P.DS ---
Providers Date of admission: 10/15/20 15:18 Expected date of discharge: 10/19/20 Attending physician: Nick Singleton Consults: 10/15/20 15:18 Consult Physician Urgent Consulting Provider: Garrett Jain Consult Reason/Comments: cva Do you want consulting provider notified?: Yes 10/17/20 06:50 Consult Physician Routine Consulting Provider: George Pardo Consult Reason/Comments: need hypercoagulable workup, stroke in the family Do you want consulting provider notified?: Yes Primary care physician: Fabricio Mitchell Hospital Course: Presenting complaint: Difficulty with speech Hospital course This is a pleasant 55 years old female who follows with Dr. Mitchell. with past medical history of hypertension, asthma. Presents because of inability to talk for 20 minutes and slurred speech N emergency room patient found to have NIH of 1, she was found but a candidate for TPA per Dr. Erazo. Patient states after 10:00 patient could not speak and gradually she was getting better, first just at [employer] work, then to worsening her speech becomes slurs before came back to normal within half an hour. Currently she is speaking normally. She denies headache. No weakness or numbness or double vision. She is with history of seizure on Lamictal and she follows up with Dr. Merrill, patient states usually when she does seizure she got stuttering in her voice Initial computed tomography scan of the brain, CT angiography, EKG were all unremarkable. Carotid Doppler did not show any significant stenosis. October 17: patient had an episode of losing her speech unable to find words while talking to her . On the phone. Code stroke was called. Repeat computed tomography scan was negative. She will had some weakness in the left leg and felt some tingling on the left side of the face. Symptoms improved within about 40 minutes. Hematology was consulted for hypercoagulable workup. Today: No further neurological symptoms. Patient doing well. at the bedside. Care was discussed with the patient and . Questions answered. Discussed with neurology Dr. Otero and also with hematology and Rita Wheeler. Patient will follow-up in the office. Also follow-up with Dr. Merrill with home patient is followed previously. Discussion and discharge planning more than 35 minutes Consultation: Dr. Otero from neurology Dr. Pardo from hematology On examination: VITAL SIGNS: 98.2, 63, 16, 144/75, 95% room air GENERAL APPEARANCE: Resting in bed EYES: Pupils equal. Conjunctiva normal. NECK: JVD not raised. Mass not palpable. RESPIRATORY: Respiratory effort normal. Lungs clear to auscultation. CARDIOVASCULAR: First and second sounds normal. No edema. ABDOMEN: Soft. Liver and spleen not palpable. No tenderness. No mass palpable. NEUROLOGICAL: Cranial nerves grossly intact. Power sensation grossly intact. PSYCHIATRY: Alert and oriented x3. Mood and affect normal. INVESTIGATIONS, reviewed in the clinical context: Anticardiolipin antibodies: All negative. TSH 2.1 Homocysteine elevated at 22.3 B12, folate,: Normal Beta-2 microglobulin: Elevated at 2.85 August lipoprotein [id number] EEG: Focal slowing and focal epileptiform activity over the left temporal region. Brain MRI [October 17]:Nothing acute, chronic changes CT brain: [October 17: Nothing acute WBC 6.1 hemoglobin 13.4 potassium 4.4 creatinine 1.26 for LDL 126 TSH 2.1 Coronavirus [PCR]-not detected Anticardiolipin antibodies: Negative Computed tomography scan of the brain, CT angiography, carotid Doppler: Unremarkable EKG tracing: Normal sinus rhythm Assessment and plan: -Recurrent TIA- Patient's had 2 negative computed tomography scan, negative carotid Doppler, negative MRI. This could be small vessel disease. On aspirin, Plavix, Lipitor. -Morbid obesity BMI 40 Weight loss measures, follow with PCP -Essential hypertension Cozaar -Hyperlipidemia On Lipitor -Anxiety depression not otherwise specified On Paxil -Epileptiform activity, and the left temporal lobe Patient is on Lamictal. Continue the same -Moderate persistent asthma Continue with Symbicort, and platelet Disposition: Home Plan - Discharge Summary Discharge Rx Participant: No New Discharge Prescriptions: New Clopidogrel [Plavix] 75 mg PO DAILY #21 tab Atorvastatin [Lipitor] 80 mg PO HS #30 tab valACYclovir HCL [Valtrex] 1,000 mg PO TID #15 tablet Aspirin 81 mg PO DAILY #30 chewable Folic Acid 1 mg PO DAILY #30 tab Continue LORazepam [Ativan] 0.5 mg PO DIRECTED PRN PRN Reason: Seizures Albuterol Inhaler [Ventolin Hfa Inhaler] 2 puff INHALATION RT-QID PRN PRN Reason: Shortness Of Breath Omeprazole 20 mg PO AC-BRKFST Montelukast [Singulair] 10 mg PO HS lamoTRIgine [LaMICtal] 300 mg PO BID Fluticasone/Vilanterol [Breo Ellipta 200-25 Mcg INH] 1 puff INHALATION RT- DAILY PARoxetine HCL [Paxil] 10 mg PO DAILY Changed Losartan [Cozaar] 25 mg PO HS #0 Discontinued Rosuvastatin [Crestor] 20 mg PO DAILY Discharge Medication List Albuterol Inhaler [Ventolin Hfa Inhaler] 2 puff INHALATION RT-QID PRN 10/15/20 [History] Fluticasone/Vilanterol [Breo Ellipta 200-25 Mcg INH] 1 puff INHALATION RT-DAILY 10/15/20 [History] LORazepam [Ativan] 0.5 mg PO DIRECTED PRN 10/15/20 [History] Montelukast [Singulair] 10 mg PO HS 10/15/20 [History] Omeprazole 20 mg PO AC-BRKFST 10/15/20 [History] PARoxetine HCL [Paxil] 10 mg PO DAILY 10/15/20 [History] lamoTRIgine [LaMICtal] 300 mg PO BID 10/15/20 [History] Aspirin 81 mg PO DAILY #30 chewable 10/17/20 [Rx] Clopidogrel [Plavix] 75 mg PO DAILY #21 tab 10/17/20 [Rx] Folic Acid 1 mg PO DAILY #30 tab 10/17/20 [Rx] Losartan [Cozaar] 25 mg PO HS #0 10/17/20 [Rx] Atorvastatin [Lipitor] 80 mg PO HS #30 tab 10/19/20 [Rx] valACYclovir HCL [Valtrex] 1,000 mg PO TID #15 tablet 10/19/20 [Rx] Follow up Appointment(s)/Referral(s): George Pardo MD [STAFF PHYSICIAN] - 10 Days (The office will give you a call with appointment date and time.) Fabricio Mitchell MD [Primary Care Provider] - 10/23/20 9:30 am (This is your previously scheduled appointment. ) Jef Merrill DO [STAFF PHYSICIAN] - 2 Weeks (Please call and schedule hospital follow up appointment when office reopens.) Patient Instructions/Handouts: Ischemic Stroke (DC) Discharge Disposition: HOME SELF-CARE
--- NOTE | 2020-10-26 11:21 | ECHOF ---
Referral Reason:TIA vs CVA MEASUREMENTS -------- HEIGHT: 165.1 cm WEIGHT: 108.9 kg BP: 113/69 RVIDd: 4.0 cm (< 3.3) IVSd: 1.2 cm (0.6 - 1.1) LVIDd: 5.2 cm (3.9 - 5.3) LVPWd: 1.0 cm (0.6 - 1.1) IVSs: 1.6 cm LVIDs: 3.3 cm LVPWs: 1.6 cm LAESV Index (A-L): 24.13 ml/m Ao Diam: 2.9 cm (2.0 - 3.7) AV Cusp: 2.2 cm (1.5 - 2.6) LA Diam: 4.4 cm (2.7 - 3.8) MV EXCURSION: 22.667 mm (> 18.000) MV EF SLOPE: 139 mm/s (70 - 150) EPSS: 0.4 cm MV E Sherman: 0.98 m/s MV DecT: 233 ms MV A Sherman: 0.71 m/s MV E/A Ratio: 1.38 RAP: 5.00 mmHg RVSP: 23.03 mmHg FINDINGS -------- Sinus rhythm. This was a technically adequate study. The left ventricular size is normal. There is mild concentric left ventricular hypertrophy. Overa ll left ventricular systolic function is normal with, an EF between 55 - 60 %. The diastolic fillin g pattern is normal for the age of the patient 17.18. The right ventricle is moderately enlarged. Normal LA size by volume 22+/-6 ml/m2. The right atrial size is normal. Contrast study was performed with 2 iv injections of 8 ccs of agitated normal saline, at rest, and wi th cough. No evidence of interatrial communication by agitated saline study analysis. Interatrial and interven tricular septum intact. The aortic valve is trileaflet and appears structurally normal. There is no evidence of aortic regu rgitation. There is no evidence of aortic stenosis. There is trace mitral regurgitation. Mild tricuspid regurgitation present. There is no evidence of pulmonary hypertension. The right v entricular systolic pressure, as measured by Doppler, is 23.03mmHg. There is no pulmonic regurgitation present. The aortic root size is normal. Normal inferior vena cava with normal inspiratory collapse consistent with estimated right atrial pre ssure of 5 mmHg. There is no pericardial effusion. CONCLUSIONS -------- 1. The left ventricular size is normal. 2. There is mild concentric left ventricular hypertrophy. 3. Overall left ventricular systolic function is normal with, an EF between 55 - 60 %. 4. The diastolic filling pattern is normal for the age of the patient 17.18 5. The right ventricle is moderately enlarged. 6. Contrast study was performed with 2 iv injections of 8 ccs of agitated normal saline, at rest, and with cough. 7. No evidence of interatrial communication by agitated saline study analysis. 8. There is trace mitral regurgitation. 9. Mild tricuspid regurgitation present. CEMENT MASON MAINTENANCE: Tatum Soler RDCS
== END 2020-10-19 13:56 | disposition home or self-care (01) | DRG 69 ==
LOC: EC 12:55 → 3SCARD 15:18
PROVIDERS: ADMIT Hospitalist; ATTEND Hospitalist
DX: G45.9 Transient cerebral ischemic attack, unspecified (principal); R47.01 Aphasia; Z68.41 Body mass index [BMI] 40.0-44.9, adult; E66.01 Morbid (severe) obesity due to excess calories; G40.909 Epilepsy, unspecified, not intractable, without status epilepticus; Z20.822 Contact with and (suspected) exposure to COVID-19; I12.9 Hypertensive chronic kidney disease with stage 1 through stage 4 chronic kidney disease, or unspecified chronic kidney disease; N18.2 Chronic kidney disease, stage 2 (mild); J45.40 Moderate persistent asthma, uncomplicated; R00.1 Bradycardia, unspecified; R47.1 Dysarthria and anarthria; E78.00 Pure hypercholesterolemia, unspecified; E78.5 Hyperlipidemia, unspecified; F41.8 Other specified anxiety disorders; H91.90 Unspecified hearing loss, unspecified ear; H53.40 Unspecified visual field defects; K76.89 Other specified diseases of liver; Z79.51 Long term (current) use of inhaled steroids; Z79.899 Other long term (current) drug therapy; Z87.820 Personal history of traumatic brain injury; Z87.42 Personal history of other diseases of the female genital tract; Z90.89 Acquired absence of other organs; Z90.710 Acquired absence of both cervix and uterus; Z86.73 Personal history of transient ischemic attack (TIA), and cerebral infarction without residual deficits; Z98.890 Other specified postprocedural states; Z71.3 Dietary counseling and surveillance; Z88.1 Allergy status to other antibiotic agents; Z88.2 Allergy status to sulfonamides; Z91.048 Other nonmedicinal substance allergy status; Z82.3 Family history of stroke
CPT/HCPCS: 36415; 70450; 70496; 70498; 70551; 71046; 80048; 80053; 80061; 80175; 81240; 81241; 81291; 82172; 82232; 82607; 82746; 83090; 83921; 84443; 84484; 85025; 85300; 85303; 85306; 85610; 85613; 85730; 86146; 86147; 87635; 93005; 93306; 93880; 94640; 94760; 95816; 96360; 96361; 99285

== ENCOUNTER 2020-11-14 | Emergency (ER) | payer BC | END 2020-11-14 11:50 | disposition home or self-care (01) | CPT/HCPCS: 36415; 93005; 80053; 84484; 85025; 85610; 85730; 71046; 70496; 70450; 70498; 99285; 96360; Q9967 ==

== ENCOUNTER → 2020-12-18 | Outpatient (CLI) | payer BC ==
--- NOTE | 2020-12-31 09:58 | MM ---
Reason for exam: screening (asymptomatic). Last mammogram was performed 4 years and 6 months ago. History: Patient is postmenopausal. Family history of breast cancer in maternal aunt at age 60. Took hormonal contraceptives for 6 months beginning at age 16. Physical Findings: A clinical breast exam by your physician is recommended on an annual basis and results should be correlated with mammographic findings. MG 3D Screening Mammo W/Cad Bilateral CC and MLO view(s) were taken. Prior study comparison: June 11, 2016, mammogram, performed at [place]. December 01, 2013, mammogram, performed at [place]. There are scattered fibroglandular densities. No significant changes when compared with prior studies. ASSESSMENT: Benign, BI-RAD 2 RECOMMENDATION: Routine screening mammogram of both breasts in 1 year.
== END | disposition home or self-care (01) ==
LOC: RADMAMWWP 11:21
PROVIDERS: ATTEND Pediatrics
DX: Z12.31 Encounter for screening mammogram for malignant neoplasm of breast (principal); Z78.0 Asymptomatic menopausal state; Z80.3 Family history of malignant neoplasm of breast
CPT/HCPCS: 77063; 77067

== ENCOUNTER → 2020-12-20 | Outpatient (CLI) | payer BC ==
[2020-12-20 12:30] LABS: HCT 40.7 % (34.0-46.0); HGB 13.4 gm/dL (11.4-16.0); MCH 31.2 pg (25.0-35.0); MCHC 32.9 g/dL (31.0-37.0); Mean Platelet Volume 7.2; Platelet Count 296 k/uL (150-450); RBC 4.28 m/uL (3.80-5.40)
[2020-12-20 12:40] LABS: Potassium 4.7 mmol/L (3.5-5.1)
== END | disposition home or self-care (01) ==
LOC: LABPAT 10:23
PROVIDERS: ATTEND Internal Medicine
DX: Z01.812 Encounter for preprocedural laboratory examination (principal); I10 Essential (primary) hypertension
CPT/HCPCS: 36415; 80051; 82565; 84520; 85027

== ENCOUNTER 2020-12-27 08:56 | Day surgery (SDC) | payer BC ==
[2020-12-24 09:54] VITALS: BMI 39.1
[2020-12-27] MEDS ORDERED: SODIUM CHLORIDE 0.9% 500 ML 500 ML IV ONE (09:29)
[2020-12-27 09:37] VITALS: TEMP 98.6
[2020-12-27] MEDS ORDERED: fentaNYL (PF) 50 MCG/ML 2 ML AMP ONE (10:17)
[2020-12-27] MEDS: BENZOCAINE SPRAY 1 CAN TOPICAL ONE ×2 (10:37→10:46)
[2020-12-27] MEDS ORDERED: MIDAZOLAM 2 MG/2 ML VIAL IV ONE ×2 (10:46→10:52)
[2020-12-27] MEDS ORDERED: fentaNYL (PF) 50 MCG/ML 2 ML AMP IV ONE (10:50)
[2020-12-27 11:52] VITALS: RESP 16
[2020-12-27 11:53] VITALS: PULSE 58
[2020-12-27 12:51] VITALS: BP 105/62
--- NOTE | 2020-12-27 22:53 | P.TEE ---
Description of Procedure(s): Procedure performed: Transesophageal Echocardiogram with color flow doppler, pulsed wave doppler and continuous wave doppler, moderate conscious sedation Moderate conscious sedation: Moderate conscious sedation was supplied with direct supervision of myself using Versed and Fentanyl. Complications: none Indications: Cardiac source of emboli History: Patient is a pleasant 55-year-old female with a history of hypertension, hyperlipidemia with concern of recurrent recent strokes, TIAs and therefore EMELY was recommended to rule out cardiac source of emboli. PROCEDURE: After the risks, benefits and alternatives of the above mentioned procedure was explained in detail with the patient, informed consent was obtained. Patient was brought to the lab in a fasting state. Patient was given IV Versed and Fentanyl for sedation. The throat was sprayed with Hurricane to anesthetize the throat. A lubricated Omni probe was then introduced into the esophagus and stomach and multiple views were obtained. 2D echo with color flow doppler, pulsed wave doppler and continuous wave doppler was utilized. Agitated saline bubbles were injected to assess for any intra-atrial shunt. The probe was then removed. Patient tolerated the procedure well. Patient was transferred to the post procedure area in stable and satisfactory condition. FINDINGS: 1. The aortic valve is tricuspid and function normally. 2. The mitral valve appears be normal with trivial mitral regurgitation. 3. Tricuspid valve appears to be normal without tricuspid regurgitation. 4. The interatrial septum is intact. No evidence of PFO. 5. Left atrial appendage is free of clot. 6. Left ventricular size and function appear to be normal with LV EF 60%
== END 2020-12-27 12:51 | disposition home or self-care (01) ==
LOC: CATHCVL 08:56
PROVIDERS: ATTEND Internal Medicine
DX: I63.9 Cerebral infarction, unspecified (principal); I10 Essential (primary) hypertension; E78.5 Hyperlipidemia, unspecified; Z79.899 Other long term (current) drug therapy; F17.210 Nicotine dependence, cigarettes, uncomplicated; Z88.1 Allergy status to other antibiotic agents; Z88.2 Allergy status to sulfonamides; Z88.8 Allergy status to other drugs, medicaments and biological substances; Z79.82 Long term (current) use of aspirin; Z79.02 Long term (current) use of antithrombotics/antiplatelets
CPT/HCPCS: 93312; 93320; 93325; J2250; J3010

== ENCOUNTER 2021-04-01 11:15 | Observation (INO) | payer BC ==
[2021-04-01 14:23] LABS: Basophils # (A) 0.1 k/uL (0-0.2); Basophils % (A) 1 %; Eosinophils # (A) 0.2 k/uL (0-0.7); Eosinophils % (A) 2 %; HCT 40.1 % (34.0-46.0); Lymphocytes % (A) 22 %; MCH 30.5 pg (25.0-35.0); MCHC 32.3 g/dL (31.0-37.0); MCV 94.2 fL (80.0-100.0); Mean Platelet Volume 6.9; Monocytes # (A) 0.5 k/uL (0-1.0); Monocytes % (A) 6 %; Neutrophils # (A) 6.4 k/uL (1.3-7.7); Neutrophils % (A) 69 %; Platelet Count 270 k/uL (150-450); RBC 4.26 m/uL (3.80-5.40); RDW 14.1 % (11.5-15.5); WBC 9.3 k/uL (3.8-10.6)
[2021-04-01 14:47] LABS: Albumin 4.6 g/dL (3.5-5.0); Calcium 10.1 mg/dL (8.4-10.2); Potassium 4.4 mmol/L (3.5-5.1); Total Bilirubin 0.9 mg/dL (0.2-1.3); Total Protein 7.5 g/dL (6.3-8.2)
--- NOTE | 2021-04-01 15:15 | XR ---
EXAMINATION TYPE: XR KUB DATE OF EXAM: 04/01/2021 COMPARISON: NONE HISTORY: Pain TECHNIQUE: One view abdominal series FINDINGS: The osseous structures are intact. The bowel gas pattern is nonspecific. Lung bases are clear. Curv ature of the spine. Arthropathy of the hips. IMPRESSION: 1. Nonspecific abdomen.
[2021-04-01 16:33] LABS: Appearance,Urine Clear (Clear); Bilirubin,Urine Negative (Negative); Blood,Urine Negative (Negative); Color,Urine Yellow; Glucose,Urine (UA) Negative (Negative); Ketones,Urine Negative (Negative); Leukocyte Esterase,Urine Negative (Negative); Nitrite,Urine Negative (Negative); PH, Urine 5.5 (5.0-8.0); Protein,Urine Trace (Negative); Specific Gravity,Urine 1.026 (1.001-1.035); Urobilinogen,Urine <2.0 mg/dL (<2.0)
[2021-04-01] MEDS ORDERED: HYDROcodone/APAP 5-325MG 1 EACH TAB PO STA (16:51)
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
--- NOTE | 2021-04-01 17:34 | XR ---
EXAMINATION TYPE: XR ribs RT w pa chest xray DATE OF EXAM: 04/01/2021 COMPARISON: Chest x-ray 11/14/2020 HISTORY: Rib pain TECHNIQUE: 5 views FINDINGS: Heart and mediastinum are normal. Lungs are clear. Diaphragm is normal. Bony thorax is inta ct. There is no evidence of a rib fracture. IMPRESSION: No active cardiac pulmonary disease. No evidence of any displaced rib fracture.
--- NOTE | 2021-04-01 19:18 | CT ---
EXAMINATION TYPE: CT abdomen pelvis w con DATE OF EXAM: 04/01/2021 COMPARISON: None HISTORY: Right sided abdominal and pelvic pain. CT DLP: 1681.6 mGycm Automated exposure control for dose reduction was used. CONTRAST: Performed with IV Contrast, patient injected with 80 mL of Isovue 300. Subsegmental atelectasis is present at the lung bases. Heart size is normal. There is no pericardial effusion. There is no pleural effusion. Liver spleen pancreas gallbladder stomach appear intact. The bile ducts are not dilated. Gallbladder measures up to 4.4 cm in diameter. There is no adrenal mass. Kidneys show satisfactory contrast opacification. There is no hydronephrosi s. Ureters are not dilated. Bladder distends smoothly. There is no inguinal hernia. There is no free fluid in the pelvis. There is hysterectomy. There is no pelvic mass. There is thickened appendix with some mild fat stranding. Appendix measures up to 1.8 cm. The lumbar vertebra have a L5-S1 first-degree spondylolisthesis. There is bilateral L5 spondylolysis. There is no compression fracture. The bony pelvis is intact. Hip joints are intact. IMPRESSION: Dilated appendix with fat stranding related to acute appendicitis. No abscess. Large gallbladder could relate to some degree of gallbladder dysfunction.
[2021-04-01] MEDS ORDERED: SODIUM CHLORIDE 0.9% 1,000 ML IV STA (19:44)
[2021-04-01] MEDS ORDERED: NALOXONE 0.4 MG/ML 1 ML VIAL IV PRN (19:45)
[2021-04-01] MEDS ORDERED: ONDANSETRON 4 MG/2 ML VIAL IVP PRN (19:45)
[2021-04-01] MEDS: PIPERACILLIN-TAZOBACTAM 3.375 GM in SODIUM CHLORIDE 0.9% 100 ML IVPB SCH (20:04)
[2021-04-01] MEDS: MORPHINE SULFATE 4 MG/ML SYRINGE IV PRN (21:17)
[2021-04-01] MEDS ORDERED: ALBUTEROL NEBULIZED 2.5 MG/3 ML INHALATION PRN (23:46)
[2021-04-02] MEDS: ATORVASTATIN 80 MG TAB PO SCH ×2 (00:23→21:01)
[2021-04-02] MEDS: PARoxetine 20 MG TAB PO SCH ×2 (00:23→21:01)
[2021-04-02] MEDS: TOPIRAMATE 25 MG TAB PO SCH ×3 (00:23→21:01)
[2021-04-02] MEDS: MONTELUKAST 10 MG TAB PO SCH ×2 (00:23→21:00)
[2021-04-02] MEDS: lamoTRIgine 100 MG TAB PO SCH ×3 (00:23→21:00)
[2021-04-02] MEDS: LOSARTAN 50 MG TAB PO SCH ×2 (00:23→21:00)
[2021-04-02] MEDS: MORPHINE SULFATE 4 MG/ML SYRINGE IV PRN ×3 (01:36→14:16)
[2021-04-02] MEDS: PIPERACILLIN-TAZOBACTAM 3.375 GM in SODIUM CHLORIDE 0.9% 100 ML IVPB SCH ×3 (03:34→21:00)
[2021-04-02] MEDS: SYMBICORT 160-4.5 MCG INHALER INHALATION SCH ×2 (07:35→19:37)
[2021-04-02 07:50] LABS: Albumin 3.9 g/dL (3.5-5.0); Calcium 9.6 mg/dL (8.4-10.2); Potassium 4.3 mmol/L (3.5-5.1); Total Bilirubin 1.5 mg/dL (0.2-1.3); Total Protein 6.6 g/dL (6.3-8.2)
[2021-04-02 07:51] LABS: Basophils % (A) 0 %; Eosinophils # (A) 0.2 k/uL (0-0.7); Eosinophils % (A) 2 %; HCT 36.3 % (34.0-46.0); Lymphocytes # (A) 1.9 k/uL (1.0-4.8); Lymphocytes % (A) 20 %; MCH 31.4 pg (25.0-35.0); MCV 95.2 fL (80.0-100.0); Mean Platelet Volume 7.1; Monocytes # (A) 0.5 k/uL (0-1.0); Monocytes % (A) 5 %; Neutrophils # (A) 6.5 k/uL (1.3-7.7); Neutrophils % (A) 71 %; Platelet Count 242 k/uL (150-450); RBC 3.81 m/uL (3.80-5.40); WBC 9.2 k/uL (3.8-10.6)
[2021-04-02] MEDS ORDERED: CLOPIDOGREL 75 MG TAB PO SCH (09:00)
[2021-04-02] MEDS ORDERED: [UNRECOGNIZED DRUG - OTHER] SL SCH (09:00)
[2021-04-02] MEDS: ASPIRIN 81 MG PO SCH (10:03)
[2021-04-02] MEDS: FOLIC ACID 1 MG TAB PO SCH (10:03)
[2021-04-02] MEDS: PANTOPRAZOLE 40 MG TABLET PO SCH (10:04)
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
[2021-04-02] MEDS: SODIUM CHLORIDE 0.9% 1,000 ML IV SCH ×2 (12:03→19:30)
[2021-04-02] MEDS ORDERED: IV FLUID CONTINUATION 1,000 ML IV ONE (15:35)
[2021-04-02] MEDS ORDERED: ONDANSETRON 4 MG/2 ML VIAL IVP ONE (15:52)
[2021-04-02] MEDS ORDERED: DEXAMETHASONE SOD PHOSPHATE 4 MG/ML 1 ML VIAL IVP ONE (15:53)
[2021-04-02] MEDS ORDERED: LACTATED RINGERS 1,000 ML IV ONE (16:02)
[2021-04-02] MEDS ORDERED: LIDOCAINE 1% INJ 10MG/ML (20 ML MDV) ONE (16:24)
[2021-04-02] MEDS ORDERED: GLYCOPYRROLATE 0.2 MG/ML 2 ML VIAL ONE (16:24)
[2021-04-02] MEDS ORDERED: ROCURONIUM 10 MG/ML (5 ML VIAL) IV ONE (16:24)
[2021-04-02] MEDS ORDERED: fentaNYL (PF) 50 MCG/ML 2 ML AMP ONE (16:24)
[2021-04-02] MEDS ORDERED: PROPOFOL 10 MG/ML 20 ML VIAL IV ONE (16:24)
[2021-04-02] MEDS ORDERED: SUCCINYLCHOLINE CHLORIDE 100 MG/5 ML SYR IV ONE (16:24)
[2021-04-02] MEDS ORDERED: NEOSTIGMINE 1 MG/ML 10 ML VIAL ONE (16:24)
[2021-04-02] MEDS ORDERED: ePHEDrine 50 MG/ML 1 ML AMP ONE (16:24)
[2021-04-02] MEDS ORDERED: MIDAZOLAM 2 MG/2 ML VIAL ONE (16:24)
[2021-04-02] MEDS ORDERED: BUPIVACAIN-EPI 0.25%-1:200,000 30 ML VIAL SQ ONE (16:53)
--- NOTE | 2021-04-02 17:16 | P.OP ---
Date of Procedure: 04/02/21 Preoperative Diagnosis: Acute appendicitis Postoperative Diagnosis: Acute appendicitis Procedure(s) Performed: Laparoscopic appendectomy Anesthesia: GIDEON Surgeon: Teddy Ochoa Estimated Blood Loss (ml): 5 Pathology: other (Appendix) Condition: stable Disposition: PACU Description of Procedure: HThe patient's placed on the operating table in the supine position. The patient received general anesthesia. The abdomen was prepped and draped in the usual sterile fashion. The skin was anesthetized 1% local Xylocaine at the trocar sites. Using an 11 blade the skin was incised at the umbilicus. The umbilicus was grasped with a Ivy clamp and then a Veress needle was placed into the peritoneal cavity. Position of the Veress needle was confirmed with positive drop test. After adequate insufflation a 5 mm trocar was placed into the peritoneal cavity. The abdomen was further insufflated. And then the laparoscope was placed in the peritoneal cavity. Next a 5 mm trocar was placed in the midline suprapubic position. And then a 10 mm trocar was placed in the midline epigastric position. The patient was rotated with the right side up and in Trendelenburg. The appendix was visualized. The appendix appeared to be inflamed. The appendix was grasped and then using the Harmonic scissors the mesoappendix was divided. A PDS Endoloop was then placed around the base of the appendix. And then the appendix was divided using Harmonic scissors. The appendix was placed into an Endo Catch and brought out through the 10 mm trocar site. The abdomen was irrigated. There is no bleeding seen. The trochars withdrawn. The skin was closed interrupted 3-0 Monocryl suture. Dermabond dressing was applied. Patient was sent to recovery room in stable condition.
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
[2021-04-03] MEDS: SODIUM CHLORIDE 0.9% 1,000 ML IV SCH ×2 (04:14→11:19)
[2021-04-03] MEDS: PIPERACILLIN-TAZOBACTAM 3.375 GM in SODIUM CHLORIDE 0.9% 100 ML IVPB SCH ×2 (04:46→13:20)
[2021-04-03] MEDS: PANTOPRAZOLE 40 MG TABLET PO SCH (08:27)
[2021-04-03] MEDS: ASPIRIN 81 MG PO SCH (08:27)
[2021-04-03] MEDS: lamoTRIgine 100 MG TAB PO SCH (08:27)
[2021-04-03] MEDS: FOLIC ACID 1 MG TAB PO SCH (08:27)
[2021-04-03] MEDS: TOPIRAMATE 25 MG TAB PO SCH (08:27)
[2021-04-03] MEDS: SYMBICORT 160-4.5 MCG INHALER INHALATION SCH (08:35)
[2021-04-03 08:48] VITALS: RESP 16
[2021-04-03] MEDS ORDERED: ENOXAPARIN 40 MG/0.4 ML SYRINGE SQ SCH (09:00)
[2021-04-03] MEDS ORDERED: HYDROcodone/APAP 5-325MG 1 EACH TAB PO PRN (09:37)
--- NOTE | 2021-04-03 14:12 | P.DS ---
Providers Date of admission: 04/01/21 21:24 Expected date of discharge: 04/03/21 Attending physician: Teddy Ochoa Consults: 04/02/21 18:28 Consult Physician Routine Consulting Provider: Nick Singleton Consult Reason/Comments: medical management Do you want consulting provider notified?: Yes Primary care physician: Fabricio Mitchell [facility] Course: Discharge diagnosis 1. Acute appendicitis status post laparoscopic appendectomy Hospital course This is a 56-year-old female who presented to the hospital with complaints of abdominal pain 1 week. Patient reports that her pain is mostly in the right side of her back and radiates into the right upper quadrant and epigastric area. She does report nausea. Pain does not appear to be associated with food. She is on Plavix due to her history of TIAs. Patient did have a CAT scan of the abdomen completed showing evidence of acute appendicitis. Patient is more tender on exam in the right lower quadrant than the right upper quadrant. She is on IV antibiotics. Patient is status post laparoscopic appendectomy. She tolerated surgery well. Her pain is controlled. She is tolerating diet. She has been up and ambulating. She is afebrile. She is stable for discharge. Please refer to chart for any further details. Patient seen and examined with Dr. Ochoa. Physician Social Service Agency Director note has been reviewed by physician. Signing provider agrees with the documented findings, assessment, and plan of care. Patient Condition at Discharge: Stable Plan - Discharge Summary Discharge Rx Participant: No New Discharge Prescriptions: New metroNIDAZOLE [Flagyl] 500 mg PO Q8HR #21 tab Levofloxacin [Levaquin] 500 mg PO DAILY 7 Days #7 tab HYDROcodone/APAP 5-325MG [[place] 5-325] 1 tab PO Q6HR PRN 3 Days #12 tab PRN Reason: Pain Docusate [Colace] 100 mg PO BID #30 capsule Continue Albuterol Inhaler [Ventolin Hfa Inhaler] 2 puff INHALATION RT-QID PRN PRN Reason: Shortness Of Breath Omeprazole 20 mg PO DAILY Montelukast [Singulair] 10 mg PO HS lamoTRIgine [LaMICtal] 300 mg PO BID Fluticasone/Vilanterol [Breo Ellipta 200-25 Mcg Inhaler] 1 puff INHALATION RT-DAILY Clopidogrel [Plavix] 75 mg PO DAILY #21 tab Atorvastatin [Lipitor] 80 mg PO HS #30 tab Cyanocobalamin/Cobamamide [Vitamin B-12 5,000 Mcg Tab Sl] 10,000 mcg SL DAILY Losartan [Cozaar] 50 mg PO HS Aspirin 81 mg PO DAILY #30 chewable Folic Acid 1 mg PO DAILY #30 tab Topiramate [Topamax] 25 mg PO BID PARoxetine HCL [Paxil] 20 mg PO HS Ergocalciferol (Vitamin D2) [Drisdol (50,000 Iu)] 1,250 mcg PO FR Discharge Medication List Albuterol Inhaler [Ventolin Hfa Inhaler] 2 puff INHALATION RT-QID PRN 10/15/20 [History] Fluticasone/Vilanterol [Breo Ellipta 200-25 Mcg Inhaler] 1 puff INHALATION RT- DAILY 10/15/20 [History] Montelukast [Singulair] 10 mg PO HS 10/15/20 [History] Omeprazole 20 mg PO DAILY 10/15/20 [History] lamoTRIgine [LaMICtal] 300 mg PO BID 10/15/20 [History] Aspirin 81 mg PO DAILY #30 chewable 10/17/20 [Rx] Clopidogrel [Plavix] 75 mg PO DAILY #21 tab 10/17/20 [Rx] Folic Acid 1 mg PO DAILY #30 tab 10/17/20 [Rx] Atorvastatin [Lipitor] 80 mg PO HS #30 tab 10/19/20 [Rx] Cyanocobalamin/Cobamamide [Vitamin B-12 5,000 Mcg Tab Sl] 10,000 mcg SL DAILY 12/24/20 [History] Losartan [Cozaar] 50 mg PO HS 12/24/20 [History] Topiramate [Topamax] 25 mg PO BID 12/24/20 [History] Ergocalciferol (Vitamin D2) [Drisdol (50,000 Iu)] 1,250 mcg PO FR 04/01/21 [History] PARoxetine HCL [Paxil] 20 mg PO HS 04/01/21 [History] Docusate [Colace] 100 mg PO BID #30 capsule 04/03/21 [Rx] HYDROcodone/APAP 5-325MG [[place] 5-325] 1 tab PO Q6HR PRN 3 Days #12 tab 04/03/21 [Rx] Levofloxacin [Levaquin] 500 mg PO DAILY 7 Days #7 tab 04/03/21 [Rx] metroNIDAZOLE [Flagyl] 500 mg PO Q8HR #21 tab 04/03/21 [Rx] Follow up Appointment(s)/Referral(s): Fabricio Mitchell MD [Primary Care Provider] - 1-2 days Teddy Ochoa MD [STAFF PHYSICIAN] - 1 Week Activity/Diet/Wound Care/Special Instructions: No driving while taking [place] No lifting over 10 pounds You may shower. No soaking or tub baths for 2 weeks Very light activity until you are reevaluated at your follow up appointment with your surgeon ok to resume Plavix tomorrow Discharge Disposition: HOME SELF-CARE
[2021-04-03 15:06] VITALS: BP 112/67; PULSE 55; TEMP 97.8
--- NOTE | 2021-04-03 17:15 | P.PN ---
Progress Note - Text Progress Note Date: 04/03/21 - Chief Complaint Abdominal pain - History of Present Illness Consultation This is a pleasant 55 years old female who follows with Dr. Mitchell. Chronic stable medical conditions include hyperlipidemia, hypertension, asthma. Seizures of which she is on Lamictal and follow the Dr. Merrill. She was here in October 2020 with 2 episodes of TIA. Neurological workup including MRI computed tomography scan of the brain 2-D echo carotid Doppler EEG were all negative. Patient is now presents with 1 week of increasing pain to started off in the right flank slowly came forward. Progressively got worse. More unbearable over the weekend. Had nausea. No fever no chills. I did baseline patient is rather erratic bowels. Sometimes constipation sometimes loose stools. Patient had no fever. The pain did not radiate anywhere. No aggravating or relieving factors. Computed tomography scan showed a dilated appendix with some fat stranding. Patient earlier today was taken down to the OR and underwent laparoscopic appendectomy by Dr. Ochoa. Postprocedure patient is somewhat tired. at the bedside. Some abdominal pain. April 03: Abdominal pain better. Patient tolerating a regular diet. No nausea vomiting. at the bedside. Has been out of bed. Review of systems: Was done for constitutional, cardiovascular, GI, pulmonary. relevant finding as above Current medications reviewed Past medical history to include: Hyperlipidemia, hypertension, asthma, seizures, TIA Social history: No history of smoking alcohol. . Family history: Skin cancer Physical examination: VITAL SIGNS: 97.8, 55, 16, 112/67, 93% room air GENERAL: Reclining in bed, awake, comfortable EYES: Pupils equal. Conjunctiva normal. HEENT: External appearance of nose and ears normal, oral cavity grossly normal. NECK: JVD not raised; masses not palpable. HEART: First and second heart sounds are normal; no edema. LUNGS: Respiratory rate normal; clear to auscultation. ABDOMEN: Soft, mild tenderness, liver spleen not palpable, no masses palpable. PSYCH: AO 3, mood and affect normal INVESTIGATIONS, reviewed in the clinical context: White count 9.2 hemoglobin 12 platelets 242 potassium 4.3 BUN 17 creatinine 1.26 UA: Negative Coronavirus [PCF]: Not detected EKG tracing personally reviewed by me-normal sinus rhythm. Rate 63 Abdominal x-ray film personally reviewed by me: Nonspecific Chest x-ray film personally reviewed by me-lung thompson clear Computed tomography scan of the abdomen pelvis with contrast: Gallbladder 4.4 cm. Thickened appendix with some mild fat stranding. 1.8 cm. Assessment and plan: -Acute appendicitis. Symptoms coming on for about a week. No signs of sepsis. Laparoscopic appendectomy done today on April [address] Ochoa. IV Zosyn. -Obesity BMI 38.4 Weight loss measures, follow with PCP -Essential hypertension Cozaar 50 mg daily at bedtime -Hyperlipidemia Lipitor 80 mg daily at bedtime -Anxiety depression not otherwise specified Paxil 20 mg daily at bedtime -Epileptiform activity, in the left temporal lobe Lamictal 300 mg twice a day -Moderate persistent asthma breo-ellipta 1 puff daily. Ventolin when necessary -GERD Omeprazole 20 mg daily Continue current medications. Results of ultrasound increasing and large gallbladder was discussed. Discussed symptoms expected to be related to gallbladder disease. Follow-up with Dr. Ochoa and PCP. Thank you Dr. Ochoa
[2021-04-05] MEDS ORDERED: ERGOCALCIFEROL 1,250 MCG (50,000 IU) CAPSULE PO SCH (09:00)
== END 2021-04-03 15:30 | disposition home or self-care (01) ==
LOC: EC 11:15 → 6NMEDSUR 21:24
PROVIDERS: ADMIT Surgery; ATTEND Surgery
DX: K35.80 Unspecified acute appendicitis (principal); K36 Other appendicitis; E66.9 Obesity, unspecified; Z68.38 Body mass index [BMI] 38.0-38.9, adult; I12.9 Hypertensive chronic kidney disease with stage 1 through stage 4 chronic kidney disease, or unspecified chronic kidney disease; N18.9 Chronic kidney disease, unspecified; Z20.822 Contact with and (suspected) exposure to COVID-19; E78.5 Hyperlipidemia, unspecified; F41.9 Anxiety disorder, unspecified; F32.A Depression, unspecified; J45.40 Moderate persistent asthma, uncomplicated; K21.9 Gastro-esophageal reflux disease without esophagitis; I25.10 Atherosclerotic heart disease of native coronary artery without angina pectoris; K66.8 Other specified disorders of peritoneum; G40.909 Epilepsy, unspecified, not intractable, without status epilepticus; Z79.51 Long term (current) use of inhaled steroids; Z79.82 Long term (current) use of aspirin; Z79.899 Other long term (current) drug therapy; Z79.02 Long term (current) use of antithrombotics/antiplatelets; Z88.1 Allergy status to other antibiotic agents; Z88.2 Allergy status to sulfonamides; Z91.048 Other nonmedicinal substance allergy status; Z90.710 Acquired absence of both cervix and uterus; Z87.820 Personal history of traumatic brain injury; Z87.01 Personal history of pneumonia (recurrent); Z86.73 Personal history of transient ischemic attack (TIA), and cerebral infarction without residual deficits; Z80.8 Family history of malignant neoplasm of other organs or systems
CPT/HCPCS: 44970; 99285; 96376; 96374; 36415; 94640 ×3; 94760; 93005; 88304; 80053 ×2; 82150; 83690; 84484; 85025 ×2; 81003; 87040; 87635; 71101; 74018; 74177; G0378 ×3; J2543 ×3; J2250; J2270 ×2; J1100; J2710; J2405; J2001; J1650; J3010; J0330; J2704; Q9967; 96361; 96365; 96366; 96375

== ENCOUNTER → 2021-04-24 | Outpatient (CLI) | payer BC ==
--- NOTE | 2021-04-24 09:13 | NM ---
Nuclear medicine hepatobiliary scan. HISTORY: Pain. DOSAGE: The patient received 8 ounces of an ensure plus and 5.3 mCi of Technetium 99m Choletec. FINDINGS: There is normal hepatic extraction. The gallbladder is seen by 20 minutes. There is bilia ry to bowel clearance by 40 minutes. Ejection fraction is 92%. IMPRESSION: 1. No evidence of cholecystitis. 2. Ejection fraction of 92% can occasionally be seen with hyperdynamic gallbladder correlate clinical ly.
== END | disposition home or self-care (01) ==
LOC: RADNMMAIN 06:31
PROVIDERS: ATTEND Surgery
DX: K82.8 Other specified diseases of gallbladder (principal)
CPT/HCPCS: 78227; A9537; J2805

== ENCOUNTER 2021-05-03 06:10 | Day surgery (SDC) | payer BC ==
[2021-05-01 11:18] VITALS: BMI 37.9
[~2021-05-03 06:10] MED LIST: ACETAMINOPHEN TAB 500 MG TAB PO PRN; HEPARIN SODIUM,PORCINE/PF 5,000 UNIT/0.5 ML SYRINGE SQ PRN
[2021-05-03] MEDS ORDERED: SCOPOLAMINE 1.5MG/72HR PATCH TRANSDERM ONE (06:27)
[2021-05-03] MEDS ORDERED: LACTATED RINGERS 1,000 ML IV SCH (06:27)
[2021-05-03] MEDS ORDERED: DEXAMETHASONE SOD PHOSPHATE 4 MG/ML 1 ML VIAL IV ONE (06:27)
[2021-05-03] MEDS ORDERED: MIDAZOLAM 2 MG/2 ML VIAL IV PRN (06:27)
[2021-05-03] MEDS ORDERED: ONDANSETRON 4 MG/2 ML VIAL IVP ONE (06:27)
[2021-05-03] MEDS ORDERED: ONDANSETRON 4 MG/2 ML VIAL ONE (06:29)
[2021-05-03 06:45] VITALS: RESP 16
[2021-05-03] MEDS ORDERED: HYDROmorphone 0.5 MG/0.5 ML SYRINGE IVP PRN (07:00)
[2021-05-03] MEDS ORDERED: SUCCINYLCHOLINE CHLORIDE 100 MG/5 ML SYR IV ONE (07:56)
[2021-05-03] MEDS ORDERED: PROPOFOL 10 MG/ML 20 ML VIAL IV ONE (07:56)
[2021-05-03] MEDS ORDERED: ROCURONIUM 10 MG/ML (5 ML VIAL) IV ONE (07:56)
[2021-05-03] MEDS ORDERED: LIDOCAINE 1% INJ 10MG/ML (20 ML MDV) ONE (07:56)
[2021-05-03] MEDS ORDERED: MIDAZOLAM 2 MG/2 ML VIAL ONE (07:56)
[2021-05-03] MEDS ORDERED: GLYCOPYRROLATE 0.2 MG/ML 2 ML VIAL ONE (07:56)
[2021-05-03] MEDS ORDERED: NEOSTIGMINE 1 MG/ML 10 ML VIAL ONE (07:56)
[2021-05-03] MEDS ORDERED: .fentaNYL (PF) 50 MCG/ML 2 ML AMP ONE (07:56)
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
[2021-05-03] MEDS ORDERED: BUPIVACAIN-EPI 0.25%-1:200,000 30 ML VIAL SQ ONE (08:25)
--- NOTE | 2021-05-03 08:45 | P.OP ---
Date of Procedure: 05/03/21 Preoperative Diagnosis: Cholecystitis Postoperative Diagnosis: Cholecystitis Procedure(s) Performed: Laparoscopic cholecystectomy Anesthesia: GIDEON Surgeon: Teddy Ochoa Pathology: other (Gallbladder) Condition: stable Disposition: PACU Description of Procedure: The patient was placed on the operating table. The patient received a general endotracheal tube anesthesia. The patients abdomen was prepped and draped in the usual sterile fashion. Through an infraumbilical stab incision, the fascia of the anterior abdominal wall was grasped with a pair of Kochers and then the Veress needle was placed in the peritoneal cavity. Position of the Veress needle was confirmed with positive drop test. The abdomen was then insufflated. After adequate insufflation, the 10 mm trocar was placed in the peritoneal cavity. Following this the laparoscope was placed in the peritoneal cavity. The patient was placed in the head-up, right side up position and then a 5 mm trocar was placed in the right lateral and right subcostal position under direct visualization. A 8 mm trocar was placed in the epigastric position. The gallbladder was grasped in the fundus and infundibulum. Traction on the gallbladder was placed in the lateral and the cephalad positions. The triangle of Calot was visualized.. The cystic duct was bluntly dissected until the union of the cystic duct and common bile duct was seen. A critical view of safety was achieved. The cystic duct was then divided and sealed with the Harmonic scissors. A PDS Endoloop was then placed throughout the cystic duct stump. The cystic artery divided and sealed with the Harmonic scissors. The gallbladder was then removed from the liver bed using Harmonic scissors. The gallbladder was then extracted through the epigastric port site. Operative field was checked for any bleeding spots and Harmonic scissors was used to coagulate the liver bed. The abdomen was irrigated. The trocars were removed. The skin was closed using interrupted 3-0 Vicryl suture. Dermabond dressing were applied. The patient tolerated the procedure well.
[2021-05-03 08:58] VITALS: TEMP 97.7
[2021-05-03] MEDS ORDERED: LACTATED RINGERS 1,000 ML IV ONE ×2 (09:30)
[2021-05-03] MEDS ORDERED: ALBUTEROL NEBULIZED 2.5 MG/3 ML INHALATION ONE (09:34)
[2021-05-03 11:19] VITALS: BP 125/64; PULSE 63
== END 2021-05-03 12:06 | disposition home or self-care (01) ==
LOC: OR 06:10
PROVIDERS: ATTEND Surgery
DX: K81.2 Acute cholecystitis with chronic cholecystitis (principal); K81.1 Chronic cholecystitis; J45.909 Unspecified asthma, uncomplicated; I12.9 Hypertensive chronic kidney disease with stage 1 through stage 4 chronic kidney disease, or unspecified chronic kidney disease; N18.30 Chronic kidney disease, stage 3 unspecified; E78.5 Hyperlipidemia, unspecified; K21.9 Gastro-esophageal reflux disease without esophagitis; Z79.899 Other long term (current) drug therapy; Z86.73 Personal history of transient ischemic attack (TIA), and cerebral infarction without residual deficits
CPT/HCPCS: 47562; J2250; J1100; J2710; J0690; J2405; J2001; J3010; J0330; J2704; J1644; 88304

== ENCOUNTER 2021-12-04 22:33 | Observation (INO) | payer BC ==
[2021-12-04 23:31] LABS: Basophils % (A) 1 %; Eosinophils # (A) 0.3 k/uL (0-0.7); Eosinophils % (A) 4 %; HCT 39.5 % (34.0-46.0); HGB 12.9 gm/dL (11.4-16.0); Lymphocytes # (A) 2.6 k/uL (1.0-4.8); Lymphocytes % (A) 44 %; MCHC 32.7 g/dL (31.0-37.0); Mean Platelet Volume 7.1; Monocytes # (A) 0.3 k/uL (0-1.0); Monocytes % (A) 5 %; Neutrophils # (A) 2.6 k/uL (1.3-7.7); Neutrophils % (A) 43 %; Platelet Count 278 k/uL (150-450); RBC 4.16 m/uL (3.80-5.40); RDW 14.7 % (11.5-15.5); WBC 5.9 k/uL (3.8-10.6)
[2021-12-04 23:42] LABS: Appearance,Urine Clear (Clear); Bilirubin,Urine Negative (Negative); Blood,Urine Negative (Negative); Color,Urine Light Yellow; Glucose,Urine (UA) Negative (Negative); Ketones,Urine Negative (Negative); Leukocyte Esterase,Urine Negative (Negative); Nitrite,Urine Negative (Negative); PH, Urine 6.5 (5.0-8.0); Protein,Urine Negative (Negative); Specific Gravity,Urine 1.004 (1.001-1.035); Urobilinogen,Urine <2.0 mg/dL (<2.0)
[2021-12-04 23:49] LABS: Partial Thromboplastin Time 26.8 sec (22.0-30.0); Prothrombin Time 10.6 sec (9.0-12.0)
[2021-12-05 00:22] LABS: Albumin 4.5 g/dL (3.5-5.0); Calcium 9.8 mg/dL (8.4-10.2); Potassium 3.7 mmol/L (3.5-5.1); Total Bilirubin 0.7 mg/dL (0.2-1.3); Total Protein 7.2 g/dL (6.3-8.2)
[2021-12-05] MEDS ORDERED: METOPROLOL TARTRATE 25 MG TAB PO STA (01:43)
[2021-12-05] MEDS ORDERED: HEPARIN SODIUM 1,000 UN/ML (10ML VL) IV PRN (01:43)
[2021-12-05] MEDS ORDERED: ASPIRIN 81 MG PO STA (01:43)
[2021-12-05] MEDS ORDERED: HEPARIN SODIUM 1,000 UN/ML (10ML VL) IV ONE (01:43)
[2021-12-05] MEDS ORDERED: HEPARIN SOD,PORK IN 0.45% NACL 25,000 UNIT in 0.45% NACL 1 250ML.BAG IV SCH (01:45)
[2021-12-05] MEDS ORDERED: NITROGLYCERIN SL TABS 0.4 MG TAB SUBLINGUAL PRN (03:49)
[2021-12-05] MEDS ORDERED: LOPERAMIDE 2 MG CAP PO STA (04:22)
[2021-12-05] MEDS ORDERED: ATORVASTATIN 80 MG TAB PO SCH ×2 (04:48→21:00)
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
--- NOTE | 2021-12-05 05:40 | XR ---
EXAMINATION TYPE: XR chest 1V portable DATE OF EXAM: 12/05/2021 COMPARISON: 04/01/2021 HISTORY: Chest pain TECHNIQUE: Single view FINDINGS: There is no heart failure nor confluent pneumonic infiltrate. Costophrenic angles are clear . IMPRESSION: No active cardiopulmonary disease. No change.
[2021-12-05] MEDS ORDERED: HYDROcodone/APAP 5-325MG 1 EACH TAB PO PRN (07:21)
[2021-12-05] MEDS: ALBUTEROL NEBULIZED 2.5 MG/3 ML INHALATION SCH ×2 (07:55→11:34)
[2021-12-05] MEDS ORDERED: SYMBICORT 160-4.5 MCG INHALER INHALATION SCH (08:00)
[2021-12-05] MEDS ORDERED: REGADENOSON 0.4 MG/5 ML SYRINGE IV PRN (08:25)
[2021-12-05] MEDS ORDERED: CAFFEINE CITRATE 60 MG/3 ML VIAL IV PRN (08:25)
[2021-12-05] MEDS ORDERED: AMINOPHYLLINE 500 MG/20 ML VIAL IV PRN (08:25)
[2021-12-05] MEDS ORDERED: DOBUTamine DRIP for NUC MED 500 MG in DEXTROSE/WATER 1 250ML.BAG IV PRN (08:26)
[2021-12-05 08:28] VITALS: TEMP 98.2
[2021-12-05] MEDS ORDERED: TOPIRAMATE 25 MG TAB PO SCH (09:00)
[2021-12-05] MEDS ORDERED: lamoTRIgine 100 MG TAB PO SCH (09:00)
[2021-12-05] MEDS ORDERED: CLOPIDOGREL 75 MG TAB PO SCH (09:00)
[2021-12-05] MEDS ORDERED: ASPIRIN 81 MG PO SCH (09:00)
[2021-12-05] MEDS ORDERED: FOLIC ACID 1 MG TAB PO SCH (09:00)
[2021-12-05] MEDS ORDERED: PANTOPRAZOLE 40 MG TABLET PO SCH (09:00)
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
[2021-12-05] MEDS ORDERED: ATROPINE SULFATE 0.1 MG/ML 10ML SYRINGE ONE (10:55)
[2021-12-05] MEDS ORDERED: DOBUTamine DRIP for NUC MED 500 MG/250 ML BAG IV ONE (10:56)
--- NOTE | 2021-12-05 11:29 | CA ---
Transthoracic Echo Report Name: Elaina Castaneda Age: 56 Gender: F : 1965 Exam Date: 12/05/2021 08:36 Exam Location: [facility] Ht (in): 65 Wt (lb): 248 Ordering Physician: Ama Silverio MD Attending/Referring Phys: Director [employer] Susan Sanchez RDCS Procedure CPT: Indications: nstemi Cardiac Hx: Technical Quality: Good Contrast 1: Total Dose (mL): Contrast 2: Total Dose (mL): MEASUREMENTS (Male / Female) Normal Values 2D ECHO LV Diastolic Diameter PLAX 5.1 cm 4.2 - 5.9 / 3.9 - 5.3 cm LV Systolic Diameter PLAX 3.2 cm IVS Diastolic Thickness 0.9 cm 0.6 - 1.0 / 0.6 - 0.9 cm LVPW Diastolic Thickness 1.0 cm 0.6 - 1.0 / 0.6 - 0.9 cm LV Relative Wall Thickness 0.4 RV Internal Dim ED PLAX 3.7 cm LA Systolic Diameter LX 3.7 cm 3.0 - 4.0 / 2.7 - 3.8 cm LA Volume 53.8 cm??? 18 - 58 / 22 - 52 cm??? M-MODE Aortic Root Diameter MM 3.3 cm MV E Point Septal Separation 0.4 cm AV Cusp Separation MM 2.1 cm DOPPLER AV Peak Velocity 144.8 cm/s AV Peak Gradient 8.4 mmHg MV Area PHT 4.2 cm??? Mitral E Point Velocity 96.6 cm/s Mitral A Point Velocity 77.2 cm/s Mitral E to A Ratio 1.3 MV Deceleration Time 181.1 ms MV E' Velocity 6.0 cm/s Mitral E to MV E' Ratio 16.0 TR Peak Velocity 241.2 cm/s TR Peak Gradient 23.3 mmHg Right Ventricular Systolic Press 27.3 mmHg FINDINGS Left Ventricle Left ventricular ejection fraction is estimated at 55-60 %. Left ventricular cavity size normal. Left ventricular wall thickness normal. Right Ventricle Mild right ventricular dilatation. Right ventricular systolic pressure within normal limits. Right Atrium Normal right atrial size. Left Atrium Mildly increased left atrial volume. Mildly increased left atrial area. No evidence for an atrial septal defect. Mitral Valve Structurally normal mitral valve. No mitral stenosis, regurgitation or prolapse. Aortic Valve Trileaflet aortic valve. Focal thickening of the aortic valve cusps. Trace to mild aortic regurgitation. Tricuspid Valve Mild tricuspid regurgitation. Pulmonic Valve Structurally normal pulmonic valve. No pulmonic regurgitation. Pericardium Normal pericardium. No pericardial effusion. Aorta Normal size aortic root and proximal ascending aorta. CONCLUSIONS Normal left ventricular ejection fraction 55-60% No mitral regurgitation Mild aortic regurgitation Mild tricuspid regurgitation No pericardial effusion Previewed by: Dr. Jose A Saez DO (Electronically Signed) Final Date: 05 December 2021 11:28
--- NOTE | 2021-12-05 11:49 | CA ---
Dobutamine Stress Echocardiogram Report Elaina Castaneda Age: 56 Gender: F : 1965 Exam Date: 12/05/2021 10:31 Exam Location: [facility] Ordering Physician: Elizabeth Butts Referring Physician: [id number] [employer]: Trudy Morris RDCS Technologist: Ht (in): 65 Wt (lb): 245 Procedure CPT: Indication: CP ICD-9 Codes: Rhythm: Patient History: Cardiac Medications: Medications in past 24 hours: Contrast: N/A Total Dose (mL): Stress Results Protocol: Dobutamine Peak Dose (???g/kg/min): Duration (min:sec): Atropine:(mg) Target HR: 139 Double Product: Resting HR: 62 Resting BP: 137 / 81 Peak HR: 140 Peak BP: / 73 Max Predicted HR: 163 86 % Max Predicted HR Stress Summary: BP Response: Reason for Termination: Cardiac Symptoms: ECG Analysis Resting EKG: Stress EKG: Arrhythmia: Echo Analysis Base Echo Analysis: Low Echo Anaylsis: Peak Echo Analysis: Recovery Echo: MEASUREMENTS (Male/Female) Normal Values CONCLUSIONS Patient underwent dobutamine stress echo with infusion of dobutamine into Stage 5 for a total of 17 minutes 14 seconds. Patient's maximum heart rate was 140 which represented 85 % age- predicted maximum heart rate. Stress EKG portion: At baseline patient's EKG showed sinus bradycardia, normal axis, no significant ST or T wave abnormalities. At peak dobutamine infusion, EKG showed mild nondiagnostic 0.[address] depressions in the inferior lateral leads. Stress echo portion: 2-D echocardiogram was performed in the parasternal long, personal short, apical 2 and apical four-chamber views at rest, low-dose, peak infusion and in recovery. At baseline, echocardiogram showed left ventricular ejection fraction 55% without wall motion abnormalities. With peak infusion, echocardiogram shows improvement in left ventricular ejection fraction, increase contractility, decrease in left ventricular end systolic dimension without wall motion abnormalities consistent with a normal response to dobutamine. Conclusions: 1. Normal stress EKG and echo response to dobutamine infusion without any evidence of inducible ischemia. 2. Normal left ventricular ejection fraction 55% Dr. Jose A Saez DO (Electronically Signed) Final Date: 05 December 2021 11:48
[2021-12-05 14:29] VITALS: BP 102/61; PULSE 52; RESP 14
--- NOTE | 2021-12-05 15:59 | P.DS ---
Providers Date of admission: 12/05/21 03:49 Expected date of discharge: 12/05/21 Attending physician: Ama Silverio MD Primary care physician: Fabricio Mitchell Hospital Course: Discharge Diagnosis: Acute anxiety Non- cardiac chest pain Asthma HTN HLD Hospital Course: The patient is a 56-year-old female with asthma, hypertension, hyperlipidemia, history of TIA, and seizure disorder who presents to the emergency room with complaints of chest pain. Laboratory evaluation in the emergency room was remarkable for troponin of 0.037. Chest x-ray showed no acute process. She was admitted for further monitoring. The remainder of her troponins were negative. She underwent dobutamine stress echo which was negative for any wall motion abnormality. She underwent traditional echo which showed an EF of 50-55% with no significant abnormalities. She did have slightly elevated blood pressure on arrival. This was inconsistently elevated and her last blood pressure before discharge was 102/70. There is no adjustments made in her blood pressure medications at time of discharge that she will need to follow this closely. She was determined stable for discharge home. She will follow with Dr. Carpio in the next 1-2 weeks regarding her blood pressure. She'll follow with Dr. Mitchell in the next 1-2 days. Patient seen and examined at bedside. No chest pain, No shortness of breath at this time. She is under alot of stress at home. We had a very matt talk about anxiety she will talk with Dr. Soto to see about adjusting her Paxil, she does not want anything sedative for her anxiety. Vital signs reviewed and stable. General: nontoxic, no distress, appears at stated age Derm: warm, dry Head: atraumatic, normocephalic, symmetric Eyes: EOMI, no lid lag, anicteric sclera Mouth: no lip lesion, mucus membranes moist Cardiovascular: S1S2 reg, no murmur, positive posterior tibial pulse bilateral, Lungs: CTA bilateral, no rhonchi, no rales , no accessory muscle use Ext: no gross muscle atrophy, no edema, no contractures Psych: Alert, oriented, appropriate affect A total of 25 minutes of time were spent preparing this complex discharge summary. Patient was discharged on 12/05/21. Patient Condition at Discharge: Good Plan - Discharge Summary Discharge Rx Participant: No New Discharge Prescriptions: Continue Albuterol Inhaler [Ventolin Hfa Inhaler] 2 puff INHALATION RT-QID Omeprazole 20 mg PO QAM Montelukast [Singulair] 10 mg PO HS lamoTRIgine [LaMICtal] 300 mg PO BID Fluticasone/Vilanterol [Breo Ellipta 200-25 Mcg Inhaler] 1 puff INHALATION RT-DAILY Clopidogrel [Plavix] 75 mg PO DAILY #21 tab Atorvastatin [Lipitor] 80 mg PO HS #30 tab Losartan [Cozaar] 50 mg PO HS Cyanocobalamin (Vitamin B-12) [Vitamin B-12] 1,000 mcg PO DAILY Aspirin 81 mg PO DAILY #30 chewable Folic Acid 1 mg PO DAILY #30 tab Topiramate [Topamax] 25 mg PO BID PARoxetine HCL [Paxil] 20 mg PO HS Ergocalciferol (Vitamin D2) [Drisdol (50,000 Iu)] 1,250 mcg PO FR Acetaminophen Tab [Tylenol] 650 mg PO Q6H #30 tab Discharge Medication List Albuterol Inhaler [Ventolin Hfa Inhaler] 2 puff INHALATION RT-QID 10/15/20 [History] Fluticasone/Vilanterol [Breo Ellipta 200-25 Mcg Inhaler] 1 puff INHALATION RT- DAILY 10/15/20 [History] Montelukast [Singulair] 10 mg PO HS 10/15/20 [History] Omeprazole 20 mg PO QAM 10/15/20 [History] lamoTRIgine [LaMICtal] 300 mg PO BID 10/15/20 [History] Aspirin 81 mg PO DAILY #30 chewable 10/17/20 [Rx] Clopidogrel [Plavix] 75 mg PO DAILY #21 tab 10/17/20 [Rx] Folic Acid 1 mg PO DAILY #30 tab 10/17/20 [Rx] Atorvastatin [Lipitor] 80 mg PO HS #30 tab 10/19/20 [Rx] Losartan [Cozaar] 50 mg PO HS 12/24/20 [History] Topiramate [Topamax] 25 mg PO BID 12/24/20 [History] Ergocalciferol (Vitamin D2) [Drisdol (50,000 Iu)] 1,250 mcg PO FR 04/01/21 [History] PARoxetine HCL [Paxil] 20 mg PO HS 04/01/21 [History] Acetaminophen Tab [Tylenol] 650 mg PO Q6H #30 tab 05/03/21 [Rx] Cyanocobalamin (Vitamin B-12) [Vitamin B-12] 1,000 mcg PO DAILY 12/05/21 [History] Follow up Appointment(s)/Referral(s): Earl Carpio MD [STAFF PHYSICIAN] - 12/12/21 10:30 am Fabricio Mitchell MD [Primary Care Provider] - 1 Week (Patient to schedule appointment, as office is closed at time of discharge.) Patient Instructions/Handouts: Chest Pain (DC) Activity/Diet/Wound Care/Special Instructions: Activity: as tolerated Diet: heart healthy Special Instructions: Take time for yourself, you can only care for others if you care for you first. Discharge Disposition: HOME SELF-CARE
[2021-12-05] MEDS ORDERED: MONTELUKAST 10 MG TAB PO SCH (21:00)
[2021-12-05] MEDS ORDERED: LOSARTAN 50 MG TAB PO SCH (21:00)
[2021-12-05] MEDS ORDERED: PARoxetine 20 MG TAB PO SCH (21:00)
[2021-12-06] MEDS ORDERED: ASPIRIN 325 MG TAB PO SCH (09:00)
== END 2021-12-05 15:21 | disposition home or self-care (01) ==
LOC: EC 22:33 → 3SCARD 12-05 03:49
PROVIDERS: ADMIT Internal Medicine; ATTEND Internal Medicine
DX: R07.89 Other chest pain (principal); F41.9 Anxiety disorder, unspecified; R79.89 Other specified abnormal findings of blood chemistry; I10 Essential (primary) hypertension; J45.909 Unspecified asthma, uncomplicated; E78.5 Hyperlipidemia, unspecified; G40.909 Epilepsy, unspecified, not intractable, without status epilepticus; H91.90 Unspecified hearing loss, unspecified ear; K21.9 Gastro-esophageal reflux disease without esophagitis; R00.1 Bradycardia, unspecified; I08.2 Rheumatic disorders of both aortic and tricuspid valves; N28.9 Disorder of kidney and ureter, unspecified; Z79.51 Long term (current) use of inhaled steroids; Z79.82 Long term (current) use of aspirin; Z79.02 Long term (current) use of antithrombotics/antiplatelets; Z79.899 Other long term (current) drug therapy; Z88.1 Allergy status to other antibiotic agents; Z88.2 Allergy status to sulfonamides; Z86.73 Personal history of transient ischemic attack (TIA), and cerebral infarction without residual deficits; Z90.711 Acquired absence of uterus with remaining cervical stump; Z90.49 Acquired absence of other specified parts of digestive tract; Z98.890 Other specified postprocedural states; Z87.828 Personal history of other (healed) physical injury and trauma; Z80.8 Family history of malignant neoplasm of other organs or systems; Z80.42 Family history of malignant neoplasm of prostate
CPT/HCPCS: 96374; 99285; 36415; 94640; 93005; 93306; 93351; 85379; 80053; 84484 ×2; 85025; 85610; 85730 ×2; 81003; 71045; G0378; J1250; J0461; J1644 ×2

== ENCOUNTER → 2022-02-11 | Outpatient (CLI) | payer BC ==
[2022-02-11 23:24] LABS: HCT 38.4 % (37.2-46.3); HGB 12.6 g/dL (12.0-15.0); MCH 30.4 pg (27.0-32.0); MCHC 32.8 g/dL (32.0-37.0); MCV 92.5 fL (80.0-97.0); Mean Platelet Volume 9.8 fL (9.5-12.2); NRBC Per 100 WBC 0 /100 WBCS (0.0-0.0); Platelet Count 285 X 10*3/uL (140-440); RBC 4.15 X 10*6/uL (4.10-5.20); RDW 14.6 % (11.5-14.5); WBC 8.22 X 10*3/uL (4.50-10.00)
[2022-02-11 23:50] LABS: Ferritin 43.2 ng/mL (10.0-291.0)
[2022-02-12 01:14] LABS: % Iron Saturation 24.7 (12.00-45.00); African American GFR (CKD) 66.3 (60.0-200.0); Albumin 4.7 g/dL (3.8-4.9); Albumin/Globulin Ratio 2.05 (1.60-3.17); Anion Gap 19.2 mmol/L (10.00-18.00); BUN/Creat Ratio 12.62 Ratio (12.00-20.00); Blood Urea Nitrogen 13.5 mg/dL (9.0-27.0); Calcium 9.5 mg/dL (8.7-10.3); Carbon Dioxide 17.9 mmol/L (20.0-27.5); Globulin 2.3 g/dL (1.6-3.3); Magnesium 2.4 mg/dL (1.5-2.4); Non-African American GFR(CKD) 57.2 (60.0-200.0); Phosphorus 3.2 mg/dL (2.4-5.1); Potassium 4.3 mmol/L (3.5-5.5); Total Bilirubin 0.4 mg/dL (0.30-1.20); Total Protein 7.1 g/dL (6.2-8.2); Uric Acid 4.6 mg/dL (2.9-7.7)
[2022-02-12 09:13] LABS: Appearance,Urine Clear (Clear); Bilirubin,Urine Negative (Negative); Blood,Urine Negative (Negative); Color,Urine Yellow; Glucose,Urine (UA) Negative (Negative); Ketones,Urine Negative (Negative); Leukocyte Esterase,Urine Negative (Negative); Nitrite,Urine Negative (Negative); Protein,Urine Negative (Negative); Specific Gravity,Urine 1.017 (1.001-1.035); Urobilinogen,Urine <2.0 mg/dL (<2.0)
== END | disposition home or self-care (01) ==
LOC: LABWHC1 15:07
PROVIDERS: ATTEND Internal Medicine
DX: N25.81 Secondary hyperparathyroidism of renal origin (principal); N18.30 Chronic kidney disease, stage 3 unspecified; D63.1 Anemia in chronic kidney disease; N39.0 Urinary tract infection, site not specified; E55.9 Vitamin D deficiency, unspecified; M10.9 Gout, unspecified
CPT/HCPCS: 36415; 80053; 81003; 82306; 82728; 83540; 83550; 83735; 83970; 84100; 84550; 85027

== ENCOUNTER → 2023-08-25 | Outpatient (CLI) | payer BC ==
--- NOTE | 2023-08-25 10:27 | MR ---
EXAMINATION TYPE: MR shoulder LT wo con DATE OF EXAM: 08/25/2023 COMPARISON: None HISTORY: Lt shoulder pain TECHNIQUE: Multiplanar, multisequence imaging of the left shoulder is performed without contrast. FINDINGS: Rotator Cuff: There is increased signal within the distal margin of the supraspinatus muscle near the musculotendinous junction. Intrasubstance signal is seen involving the distal 2 cm of the tendon ext ending to the insertion. There is a small partial through thickness tear measuring 6 mm of the tendon . Infraspinatus tendon is intact with changes of mild intrasubstance tendinosis distally near the inser tion Subscapularis tendon intact. Acromioclavicular Joint: Hypertrophic arthropathy with impingement of the rotator cuff. Glenohumeral Joint: No sizable joint effusion. Inferior glenohumeral ligament intact. Labrum: The labrum appears grossly intact given limitation of non-arthrogram study. Biceps Tendon: The long head of biceps is in normal location within bicipital groove. Bone marrow signal: No focal abnormal marrow signal is appreciated. IMPRESSION: 1. Long segmental tendinosis of the distal supraspinatus tendon with a partial through thickness tear involving the posterior fibers near the conjoined portion of the tendon at the insertion, measuring a diameter of 6 mm. 2. Impingement secondary to hypertrophic AC joint arthropathy. 3. Mild distal infraspinatus tendinosis.
== END | disposition home or self-care (01) ==
LOC: RADMRIMAIN 08:47
PROVIDERS: ATTEND Family Medicine
DX: M75.112 Incomplete rotator cuff tear or rupture of left shoulder, not specified as traumatic (principal); M67.814 Other specified disorders of tendon, left shoulder; M19.012 Primary osteoarthritis, left shoulder; M25.812 Other specified joint disorders, left shoulder

== ENCOUNTER → 2024-09-22 | Outpatient (CLI) | payer OTHER ==
[2024-09-22 18:38] LABS: Microalbumin Creatinine Ratio <16 mg/g Cr (0-30); Urine Creatinine 75.3 mg/dL (28.0-217.0)
[2024-09-22 18:44] LABS: Basophils # (A) 0.05 X 10*3/uL (0.00-0.10); Basophils % (A) 0.7 %; Eosinophils # (A) 0.16 X 10*3/uL (0.04-0.35); Eosinophils % (A) 2.4 %; HCT 41.2 % (37.2-46.3); Lymphocytes # (A) 2.21 X 10*3/uL (0.90-5.00); Lymphocytes % (A) 32.9 %; MCH 30.3 pg (27.0-32.0); MCHC 31.6 g/dL (32.0-37.0); Monocytes # (A) 0.49 X 10*3/uL (0.20-1.00); Monocytes % (A) 7.3 %; NRBC Per 100 WBC 0 X 10*3/uL (0.00-0.01); Neutrophils # (A) 3.79 X 10*3/uL (1.80-7.70); Neutrophils % (A) 56.6 %; Platelet Count 285 X 10*3/uL (140-440); RBC 4.29 X 10*6/uL (4.10-5.20); RDW 13.9 % (11.5-14.5); WBC 6.71 X 10*3/uL (4.50-10.00)
[2024-09-22 18:53] LABS: % Iron Saturation 21.53 (12.00-45.00); Albumin 4.4 g/dL (3.8-4.9); BUN/Creat Ratio 21.45 Ratio (12.00-20.00); Blood Urea Nitrogen 23.6 mg/dL (9.0-27.0); Calcium 9.7 mg/dL (8.7-10.3); Carbon Dioxide 24.3 mmol/L (21.6-31.8); Chloride 105 mmol/L (96-109); Ferritin 71.4 ng/mL (10.0-291.0); Glucose 102 mg/dL (70-110); Iron 73 UG/DL (50-170); Magnesium 2.2 mg/dL (1.5-2.4); Phosphorus 3.6 mg/dL (2.4-5.1); Potassium 4.6 mmol/L (3.5-5.5); Sodium 141 mmol/L (135-145); Total Iron Binding Capacity 339 UG/DL (228-460); Uric Acid 5.2 mg/dL (2.9-7.7)
[2024-09-22 19:54] LABS: Appearance,Urine Clear (Clear); Bilirubin,Urine Negative (Negative); Blood,Urine Negative (Negative); Color,Urine Yellow (Yellow); Ketones,Urine Negative (Negative); Nitrite,Urine Negative (Negative); Specific Gravity,Urine 1.017 (1.001-1.030); Urobilinogen,Urine 0.2 E.U./DL
== END | disposition home or self-care (01) ==
LOC: LABWHC1 12:50
PROVIDERS: ATTEND Internal Medicine Nephrology
DX: E55.9 Vitamin D deficiency, unspecified (principal); N18.31 Chronic kidney disease, stage 3a; D63.1 Anemia in chronic kidney disease; N25.81 Secondary hyperparathyroidism of renal origin; M10.9 Gout, unspecified; N39.0 Urinary tract infection, site not specified
CPT/HCPCS: 36415; 80048; 81003; 82040; 82043; 82306; 82570; 82728; 83540; 83550; 83735; 83970; 84100; 84550; 85025